=== PATIENT | male | born 1945 | race Two or more races ===

== ENCOUNTER → 2017-02-25 | Outpatient (CLI) | payer MEDICARE, OTHER ==
[2017-02-27 12:41] LABS: PSA FREE 0.36 ng/mL
== END ==
LOC: OD 08:48
PROVIDERS: ATTEND Urology
DX: N41.1 Chronic prostatitis (principal); N40.1 Benign prostatic hyperplasia with lower urinary tract symptoms; I51.9 Heart disease, unspecified; E13.9 Other specified diabetes mellitus without complications; I10 Essential (primary) hypertension
CPT/HCPCS: 36415; 84154

== ENCOUNTER → 2017-09-02 | Outpatient (CLI) | payer MEDICARE, OTHER | LOC: OD 13:53 | PROVIDERS: ATTEND Urology | DX: N41.1 Chronic prostatitis (principal); N40.1 Benign prostatic hyperplasia with lower urinary tract symptoms; E13.9 Other specified diabetes mellitus without complications; I10 Essential (primary) hypertension | CPT/HCPCS: 36415; 84153 ==

== ENCOUNTER 2018-01-15 13:32 | Inpatient (IN) | payer MEDICARE, OTHER ==
[2018-01-15] MEDS ORDERED: ASPIRIN 81 MG TABLET, CHEWABLE PO ONE (13:41)
[2018-01-15] MEDS ORDERED: NORMAL SALINE 1000 ML 1,000 ML IV ONE (13:55)
--- NOTE | 2018-01-15 14:07 | RADIOLOGY REPORT (SQ) ---
EXAM DESCRIPTION: CHEST SINGLE VIEW COMPLETED DATE/TIME: 01/15/2018 1:52 pm REASON FOR STUDY: Shortness of breath COMPARISON: 11/10/2011 EXAM PARAMETERS: NUMBER OF VIEWS: One view. TECHNIQUE: Single frontal radiographic view of the chest acquired. RADIATION DOSE: NA LIMITATIONS: None. FINDINGS: LUNGS AND PLEURA: No opacities, masses or pneumothorax. No pleural effusion. MEDIASTINUM AND HILAR STRUCTURES: No masses. Contour normal. HEART AND VASCULAR STRUCTURES: Heart normal in size. Normal vasculature. BONES: No acute findings. HARDWARE: Left-sided pacemaker/ defibrillator. OTHER: Artifact from defibrillator pads and EKG leads over the chest IMPRESSION: NO ACUTE RADIOGRAPHIC FINDING IN THE CHEST. TECHNICAL DOCUMENTATION: JOB ID: [id number] [employer]- All Rights Reserved Reading location - IP/workstation name: [email or web address]
[2018-01-15 14:10] LABS: ABSOLUTE BASOPHILS # (AUTO) 0.1 10^3/uL (0.0-0.2); ABSOLUTE EOSINOPHILS # (AUTO) 0.2 10^3/uL (0.0-0.6); ABSOLUTE LYMPHOCYTES (AUTO) 2.4 10^3/uL (0.5-4.7); ABSOLUTE MONOCYTES (AUTO) 1.3 10^3/uL (0.1-1.4); ABSOLUTE NEUT (AUTO) 14.1 10^3/uL (1.7-8.2); BASOPHILS % (AUTO) 0.7 % (0-2); HEMATOCRIT 41.9 % (37.9-51.0); HEMOGLOBIN 13.9 g/dL (13.5-17.0); LYMPHOCYTES % (AUTO) 13.4 % (13-45); MEAN CORPUSCULAR HEMOGLOBIN 31.6 pg (27.0-33.4); MEAN CORPUSCULAR HGB CONC 33.2 g/dL (32.0-36.0); MEAN CORPUSCULAR VOLUME 95 fl (80-97); MONOCYTES % (AUTO) 7.1 % (3-13); PLATELET COUNT 309 10^3/uL (150-450); RED CELL DISTRIBUTION WIDTH 13.1 % (11.5-14.0); SEGMENTED NEUTROPHILS % (AUTO) 77.8 % (42-78); TOTAL CELLS COUNTED % (AUTO) 100 %; WHITE BLOOD COUNT 18.1 10^3/uL (4.0-10.5)
--- NOTE | 2018-01-15 14:16 | EKG REPORT ---
SEVERITY:- ABNORMAL ECG - ATRIAL-VENTRICULAR DUAL-PACED COMPLEXES LEFT BUNDLE BRANCH BLOCK : Confirmed by: Red Marshall MD 15-Jan-2018 14:15:02
[2018-01-15 14:28] LABS: ALANINE AMINOTRANSFERASE 24 U/L (21-72); ALBUMIN 4.2 g/dL (3.5-5.0); ALKALINE PHOSPHATASE 91 U/L (38-126); ANION GAP 14 (5-19); ASPARTATE AMINO TRANSFERASE 18 U/L (17-59); BILIRUBIN,DIRECT 0.2 mg/dL (0.0-0.4); BILIRUBIN,TOTAL 0.8 mg/dL (0.2-1.3); BLOOD UREA NITROGEN 17 mg/dL (7-20); CARBON DIOXIDE 24 mmol/L (22-30); CHLORIDE 100 mmol/L (98-107); CREATINE KINASE 35 U/L (55-170); GLUCOSE 292 mg/dL (75-110); POTASSIUM 4.8 mmol/L (3.6-5.0); SODIUM 138.2 mmol/L (137-145)
[2018-01-15 14:40] LABS: CREATINE KINASE MB 0.54 ng/mL (<4.55); TROPONIN I < 0.012 ng/mL
--- NOTE | 2018-01-15 16:47 | ER Document Report ---
ED Cardiac - General Chief Complaint: Irregular Pulse Stated Complaint: LOW HEART RATE Time Seen by Provider: 01/15/18 13:41 Mode of Arrival: Stretcher Information source: Patient, Emergency Med Personnel Notes: History of complain-72 years old male who had a pacemaker placed last week, presents today because of low heart rate midsternal chest pain and low blood pressure. He called EMS EMS found his heart rate around 40. By the time he was brought in it was 70 without any intervention. He denied any dizziness lightheadedness. Denies any left arm numbness tingling sensation denies any nausea vomiting. REVIEW OF SYSTEMS: CONSTITUTIONAL : Denies fever, chills, or sweats. Denies recent illness. EENT: Denies eye, ear, throat, or mouth pain or symptoms. Denies nasal or sinus congestion or discharge. Denies throat, tongue, or mouth swelling or difficulty swallowing. CARDIOVASCULAR: Denies chest pain. Denies palpitations or racing or irregular heart beat. Denies ankle edema. RESPIRATORY: Denies cough, cold, or chest congestion. Denies shortness of breath, difficulty breathing, or wheezing. GASTROINTESTINAL: Denies abdominal pain or distention. Denies nausea, vomiting , or diarrhea. Denies blood in vomitus, stools, or per rectum. Denies black, tarry stools. Denies constipation. GENITOURINARY: Denies difficulty urinating, painful urination, burning, frequency, blood in urine, or discharge. MUSCULOSKELETAL: Denies back or neck pain or stiffness. Denies joint pain or swelling. SKIN: Denies rash, lesions or sores. HEMATOLOGIC : Denies easy bruising or bleeding. LYMPHATIC: Denies swollen, enlarged glands. NEUROLOGICAL: Denies confusion or altered mental status. Denies passing out or loss of consciousness. Denies dizziness or lightheadedness. Denies headache. Denies weakness or paralysis or loss of use of either side. Denies problems with gait or speech. Denies sensory loss, numbness, or tingling. Denies seizures. PSYCHIATRIC: Denies anxiety or stress. Denies depression, suicidal ideation, or homicidal ideation. ALL OTHER SYSTEMS REVIEWED AND NEGATIVE. Dictation was performed using [employer] voice recognition software PHYSICAL EXAMINATION: GENERAL: Well-appearing, well-nourished and in no acute distress. HEAD: Atraumatic, normocephalic. EYES: Pupils equal round and reactive to light, extraocular movements intact, sclera anicteric, conjunctiva are normal. ENT: Nares patent, oropharynx clear without exudates. Moist mucous membranes. NECK: Normal range of motion, supple without lymphadenopathy LUNGS: Breath sounds clear to auscultation bilaterally and equal. No wheezes rales or rhonchi. HEART: Regular rate and rhythm without murmurs ABDOMEN: Soft, nontender, nondistended abdomen. No guarding, no rebound. No masses appreciated. Musculoskeletal: Normal range of motion, no pitting or edema. No cyanosis. NEUROLOGICAL: Cranial nerves grossly intact. Normal speech, normal gait. Normal sensory, motor exams PSYCH: Normal mood, normal affect. SKIN: Warm, Dry, normal turgor, no rashes or lesions noted. TRAVEL OUTSIDE OF THE [place] IN LAST 30 DAYS: No - HPI Patient complains to provider of: Chest pain. denies: Chest tightness, Palpitations, Shortness of breath, Other - Related Data Allergies/Adverse Reactions: No Known Allergies Allergy (Verified 01/15/18 13:57) Past Medical History - Social History Smoking Status: Never Smoker Chew tobacco use (# tins/day): No Frequency of alcohol use: None Drug Abuse: None Family History: Reviewed & Not Pertinent Patient has suicidal ideation: No Patient has homicidal ideation: No - Past Medical History Cardiac Medical History: Reports: Hx Atrial Fibrillation, Hx Hypertension Pulmonary Medical History: Reports: Hx Asthma Endocrine Medical History: Reports: Hx Diabetes Mellitus Type 2 Renal/ Medical History: Denies: Hx Peritoneal Dialysis Past Surgical History: Reports: Hx Cardiac Catheterization - stents Review of Systems - Review of Systems Constitutional: denies: No symptoms reported, See HPI, Chills, Diaphoresis, Fever, Malaise, Weakness, Other, Weight gain, Weight loss, Recent illness EENT: denies: No symptoms reported, See HPI, Eye pain, Eye discharge, Blurred vision, Tearing, Double vision, Ear pain, Ear discharge, Nose pain, Nose congestion, Nose discharge, Sinus pressure, Sinus discharge, Throat pain, Difficulty swallowing, Throat swelling, Mouth pain, Mouth swelling, Dental problem, Vertigo, Other Cardiovascular: See HPI Respiratory: denies: No symptoms reported, See HPI, Cough, Hurts to breathe, Hemoptysis, Short of breath, Sputum, Stridor, Wheezing, Other Gastrointestinal: denies: No symptoms reported, See HPI, Abdomen distended, Abdominal pain, Diarrhea, Nausea, Vomiting, Constipation, Blood streaked bowels , Poor appetite, Poor fluid intake, Blood in vomit, Black stools, Rectal bleeding, Last bowel movement, Fecal incontinence, Other Genitourinary: denies: No symptoms reported, See HPI, Burning, Dysuria, Discharge, Frequency, Flank pain, Hematuria, Incontinence, Pain, Urgency, Retention, Other Skin: denies: No symptoms reported, See HPI, Change in color, Change in hair/ nails, Dryness, Lesions, Lumps, Rash, Other Physical Exam - Vital signs Vitals: Resp Pulse Ox 10 L 97 01/15/18 13:37 01/15/18 13:37 - Notes Notes: Dictated Course - Vital Signs Vital signs: Temp Pulse Resp BP Pulse Ox 98 F 63 23 H 91/65 L 96 01/15/18 13:40 01/15/18 13:40 01/15/18 15:51 01/15/18 16:10 01/15/18 16:10 - Laboratory Result Diagrams: 01/15/18 13:50 01/15/18 13:50 Laboratory results interpreted by me: 01/15/18 01/15/18 13:50 13:50 WBC 18.1 H Absolute Neutrophils 14.1 H Glucose 292 H Creatine Kinase 35 L - Diagnostic Test Radiology reviewed: Reports reviewed - Chest x-ray reported by radiologist as normal - EKG Interpretation by Me EKG shows normal: Sinus rhythm Rate: Normal - Sinus rhythm at the rate of 86 bpm normal axis no acute changes noted. Discharge - Discharge Clinical Impression: Chest pain, rule out acute myocardial infarction, Hypotensive episode Condition: Fair Disposition: ADMITTED INPATIENT Admitting Provider: Hospitalist Unit Admitted: Telemetry
[2018-01-15] MEDS ORDERED: ONDANSETRON HCL INJ/PF 4 MG/2 ML SDV IV PRN (18:00)
[2018-01-15] MEDS ORDERED: DEXTROSE 5%-WATER 250 ML with NOREPINEPHRINE BITARTRATE 4 MG IV PRN ×2 (18:00)
[2018-01-15] MEDS ORDERED: ACETAMINOPHEN 325 MG TABLET PO PRN (18:00)
[2018-01-15] MEDS ORDERED: GUAIFENESIN SYRP 200 MG/10 ML UDC PO PRN (18:11)
[2018-01-15] MEDS ORDERED: VANCOMYCIN HCL 0 MG in DEXTROSE 5%-WATER 250 ML IV NR (18:15)
--- NOTE | 2018-01-15 18:31 | PDOC H&P ---
History of Present Illness Admission Date/PCP: 01/15/2018 Patient complains of: This patient presents emergency room with complaints of acute onset of midsternal chest pain especially when taking a deep breath. He also complained of a fever. Patient actually said he was fine until this morning History of Present Illness: REUBEN LÓPEZ is a 72 year old male who presents emergency room with complaints of acute onset of midsternal chest pain especially when taking a deep breath. He also complained of a fever. Patient actually said he was fine until this morning. He got up and prepared to shave and took a bath and this was when the symptoms started. Patient does live alone as there is a recent . EMS apparently found him to be initially bradycardic however this is somewhat questionable as this was not documented anywhere. He did recently have a pacemaker inserted at [place] on January 04. Recent discharge from the incision site and there is no swelling or pain to her usual from the site. He was found to be hypotensive in the emergency room and although he felt febrile his temperature was within normal. Continues to complain of pleuritic chest pain and he does have a slight cough. His white count was also found to be elevated at 18,000 with a left shift. There is no dysuria frequency or altered mental status Past Medical History Cardiac Medical History: Reports: Atrial Fibrillation, Hypertension Pulmonary Medical History: Reports: Asthma Endocrine Medical History: Reports: Diabetes Mellitus Type 2 Past Surgical History Past Surgical History: Reports: Cardiac Catheterization - stents, Pacemaker - Social History Information Source: Patient Lives with: Alone Smoking Status: Never Smoker Frequency of Alcohol Use: None Hx Recreational Drug Use: No Hx Prescription Drug Abuse: No - Advance Directive Resuscitation Status: Full Code Family History Family History: None, Reviewed & Not Pertinent Parental Family History Reviewed: Yes Children Family History Reviewed: Yes Sibling(s) Family History Reviewed.: Yes Medication/Allergy Home Medications: Amitriptyline HCl 10 mg PO QHS 01/15/18 Atorvastatin Calcium 10 mg PO QHS 01/15/18 Carvedilol [Coreg 3.125 mg Tablet] 3.125 mg PO Q12 01/15/18 Etodolac 400 mg PO BID 01/15/18 Glipizide [Glipizide ER] 5 mg PO DAILY 01/15/18 Lubiprostone [Amitiza 24 Mcg Capsule] 24 mcg PO BID 01/15/18 Lubiprostone [Amitiza 24 Mcg Capsule] 24 mcg PO DAILY 01/15/18 Metformin HCl [Metformin HCl ER] 500 mg PO DAILY 01/15/18 Oxycodone HCl 5 mg PO Q4H PRN 01/15/18 Sacubitril/Valsartan [Entresto 24 mg-26 mg Tablet] 1 each PO BID 01/15/18 Sertraline HCl 25 mg PO DAILY 01/15/18 Silodosin [Rapaflo] 8 mg PO QHS 01/15/18 Sitagliptin Phos/Metformin HCl [Janumet Xr 100-1,000 mg Tablet] 1 each PO DAILY 01/15/18 Allergies/Adverse Reactions: No Known Allergies Allergy (Verified 01/15/18 13:57) Review of Systems Constitutional: PRESENT: chills, fatigue, fever(s), weakness. ABSENT: headache( s), weight gain, weight loss Eyes: ABSENT: visual disturbances Nose, Mouth, and Throat: PRESENT: headache(s). ABSENT: sore throat Cardiovascular: PRESENT: chest pain Respiratory: PRESENT: cough Gastrointestinal: ABSENT: abdominal pain, constipation, diarrhea, hematemesis, hematochezia, nausea, vomiting Genitourinary: ABSENT: dysuria, hematuria Musculoskeletal: ABSENT: joint swelling Neurological: ABSENT: abnormal gait, abnormal speech, confusion, dizziness, focal weakness, syncope Physical Exam Vital Signs: Temp Pulse Resp BP Pulse Ox 98 F 63 25 H 92/71 L 95 01/15/18 13:40 01/15/18 13:40 01/15/18 17:01 01/15/18 17:01 01/15/18 17:00 Intake & Output 01/14/18 01/15/18 01/16/18 06:59 06:59 06:59 Weight 68.039 kg General appearance: PRESENT: no acute distress, well-developed Head exam: PRESENT: atraumatic Ear exam: PRESENT: normal external ear exam Mouth exam: PRESENT: dry mucosa Neck exam: ABSENT: carotid bruit, JVD, lymphadenopathy, thyromegaly Respiratory exam: PRESENT: clear to auscultation marcel, decreased breath sounds, unlabored. ABSENT: rales, rhonchi, wheezes Cardiovascular exam: PRESENT: RRR. ABSENT: diastolic murmur, rubs, systolic murmur Pulses: PRESENT: normal dorsalis pedis pul GI/Abdominal exam: PRESENT: normal bowel sounds, soft. ABSENT: distended, guarding, mass, organolmegaly, rebound, tenderness Rectal exam: PRESENT: deferred Extremities exam: PRESENT: full ROM. ABSENT: calf tenderness, clubbing, pedal edema Musculoskeletal exam: PRESENT: ambulatory Neurological exam: PRESENT: alert, awake, oriented to person, oriented to place , oriented to time, oriented to situation, CN II-XII grossly intact. ABSENT: motor sensory deficit Psychiatric exam: PRESENT: appropriate affect Skin exam: PRESENT: other - Left chest wall incision site PPM intact, mild erythema but no discharges seen Results Laboratory Results: 01/15/18 13:50 01/15/18 13:50 01/15/18 01/15/18 13:50 13:50 WBC 18.1 H RBC 4.40 Hgb 13.9 Hct 41.9 MCV 95 MCH 31.6 MCHC 33.2 RDW 13.1 Plt Count 309 Seg Neutrophils % 77.8 Lymphocytes % 13.4 Monocytes % 7.1 Eosinophils % 1.0 Basophils % 0.7 Absolute Neutrophils 14.1 H Absolute Lymphocytes 2.4 Absolute Monocytes 1.3 Absolute Eosinophils 0.2 Absolute Basophils 0.1 Sodium 138.2 Potassium 4.8 Chloride 100 Carbon Dioxide 24 Anion Gap 14 BUN 17 Creatinine 0.95 Est GFR ( Amer) > 60 Est GFR (Non-Af Amer) > 60 Glucose 292 H Calcium 10.0 Total Bilirubin 0.8 AST 18 ALT 24 Alkaline Phosphatase 91 Total Protein 7.0 Albumin 4.2 01/15/18 01/15/18 13:50 13:50 Creatine Kinase 35 L CK-MB (CK-2) 0.54 Troponin I < 0.012 EKG Comments: Paced Rhythm, LBBB Impressions: Chest X-Ray 01/15/18 13:41 IMPRESSION: NO ACUTE RADIOGRAPHIC FINDING IN THE CHEST. Assessment & Plan - Diagnosis (1) Sepsis Is this a current diagnosis for this admission?: Yes Plan: It appears patient is likely septic given his hypotension as well as his leukocytosis and although his chest x-ray is negative I strongly suspect that he has pneumonia. I will start him on broad-spectrum antibiotics including vancomycin as he recently was in the hospital for his pacemaker placement. Will add cefepime. Blood cultures will be collected and if available for sputum cultures also. Will de-escalate antibiotics as appropriate. At this time I really do not see any evidence of a pocket infection or cellulitis will continue to monitor closely. (2) Pneumonia Is this a current diagnosis for this admission?: Yes Plan: Clinically appears to have rales in both bases. Chest x-ray is negative however patient is clearly dehydrated with loss of intravascular volume which may explain the clean chest x-ray. Will obtain urine for Legionella and strep and continue empiric antibiotics (3) CAD (coronary artery disease) Is this a current diagnosis for this admission?: Yes Plan: Judging from patient's home medicines it appears he has significant history of heart failure however patient is a poor historian and is unable to give me much information. He obviously did have a recent pacemaker defibrillator inserted which suggest severe cardiomyopathy. At this point this is not a an acute issue so we will monitor and treat as appropriate (4) Hypotensive episode Is this a current diagnosis for this admission?: Yes Plan: Secondary to intravascular volume depletion and sepsis - Time Time Spent: 50 to 70 Minutes Medications reviewed and adjusted accordingly: Yes Anticipated discharge: Home Within: within 72 hours - Inpatient Certification Based on my medical assessment, after consideration of the patient's comorbidities, presenting symptoms, or acuity I expect that the services needed warrant INPATIENT care.: Yes Medical Necessity: Need For IV Fluids, Need for IV Antibiotics, Risk of Complication if Not Cared For in Hospital
[2018-01-15] MEDS: CEFEPIME 1 GM/D5W RTU 1 GM/50 ML RTUPB IV SCH (18:38)
[2018-01-15] MEDS ORDERED: MORPHINE SULFATE 10 MG/ML INJ IV PRN (18:38)
[2018-01-15] MEDS: OXYCODONE-ACETAMINOPHEN 5-325 MG TABLET PO PRN (18:39)
[2018-01-15] MEDS: RINGERS SOLUTION,LACTATED 1,000 ML IV PRN ×2 (18:40→23:00)
[2018-01-15] MEDS ORDERED: GUAIFENESIN 600 MG TABLET.SA PO ONE (19:00)
[2018-01-15] MEDS ORDERED: VANCOMYCIN HCL INJ 1000 MG VIAL IV PRN (19:21)
[2018-01-15] MEDS ORDERED: VANCOMYCIN HCL 1,500 MG in DEXTROSE 5%-WATER 250 ML IV ONE (20:00)
[2018-01-15] MEDS: FAMOTIDINE 20 MG TABLET PO SCH (21:45)
[2018-01-15] MEDS: ATORVASTATIN CALCIUM 10 MG TABLET PO SCH (21:45)
[2018-01-15] MEDS ORDERED: (PENDING PHARMACY ID) (Silodosin [Rapaflo] 8 MG) PO SCH (22:00)
[2018-01-15] MEDS ORDERED: TEMAZEPAM 7.5 MG CAPSULE PO SCH (22:00)
[2018-01-16] MEDS: OXYCODONE-ACETAMINOPHEN 5-325 MG TABLET PO PRN (00:30)
[2018-01-16] MEDS ORDERED: AMITRIPTYLINE HCL 10 MG TABLET PO ONE (00:45)
[2018-01-16] MEDS ORDERED: DEXTROSE 40% GEL 15 GM TUBE X 2 PO PRN (01:14)
[2018-01-16] MEDS ORDERED: GLUCAGON,HUMAN RECOMB 1 MG INJ IM PRN (01:14)
[2018-01-16] MEDS ORDERED: DEXTROSE 40% GEL 15 GM TUBE PO PRN (01:14)
[2018-01-16] MEDS ORDERED: DEXTROSE 50%-WATER SYRINGE 25 GM/50 ML DOSE IV PRN (01:14)
[2018-01-16] MEDS ORDERED: DEXTROSE 50%-WATER SYRINGE 12.5 GM/25 ML DOSE IV PRN (01:14)
[2018-01-16] MEDS: INSULIN LISPRO 100 UNIT/ML 3 ML VIAL SUBCUT PRN ×5 (01:35→21:58)
[2018-01-16 05:21] LABS: ABSOLUTE LYMPHOCYTES (AUTO) 1.2 10^3/uL (0.5-4.7); ABSOLUTE MONOCYTES (AUTO) 1.5 10^3/uL (0.1-1.4); ABSOLUTE NEUT (AUTO) 13.2 10^3/uL (1.7-8.2); BASOPHILS % (AUTO) 0.2 % (0-2); HEMATOCRIT 36.8 % (37.9-51.0); HEMOGLOBIN 12.4 g/dL (13.5-17.0); LYMPHOCYTES % (AUTO) 7.4 % (13-45); MEAN CORPUSCULAR HEMOGLOBIN 31.9 pg (27.0-33.4); MEAN CORPUSCULAR HGB CONC 33.6 g/dL (32.0-36.0); MEAN CORPUSCULAR VOLUME 95 fl (80-97); MONOCYTES % (AUTO) 9.3 % (3-13); PLATELET COUNT 257 10^3/uL (150-450); RED BLOOD COUNT 3.88 10^6/uL (4.35-5.55); SEGMENTED NEUTROPHILS % (AUTO) 83.1 % (42-78); TOTAL CELLS COUNTED % (AUTO) 100 %; WHITE BLOOD COUNT 15.9 10^3/uL (4.0-10.5)
[2018-01-16 05:46] LABS: ANION GAP 9 (5-19); BLOOD UREA NITROGEN 23 mg/dL (7-20); CALCIUM 9.6 mg/dL (8.4-10.2); CARBON DIOXIDE 25 mmol/L (22-30); CHLORIDE 101 mmol/L (98-107); GLUCOSE 251 mg/dL (75-110); POTASSIUM 5.5 mmol/L (3.6-5.0); SODIUM 134.9 mmol/L (137-145)
[2018-01-16 05:56] LABS: TROPONIN I 0.046 ng/mL
[2018-01-16] MEDS ORDERED: CEFEPIME 1 GM/D5W RTU 1 GM/50 ML RTUPB IV ONE (06:07)
[2018-01-16] MEDS: CEFEPIME 1 GM/D5W RTU 1 GM/50 ML RTUPB IV SCH ×2 (06:20→17:52)
[2018-01-16] MEDS: OXYCODONE HCL IR 5 MG TABLET PO PRN (06:40)
[2018-01-16] MEDS: RINGERS SOLUTION,LACTATED 1,000 ML IV PRN ×2 (06:41→17:55)
[2018-01-16] MEDS: METFORMIN HCL 500 MG TABLET PO SCH ×2 (07:57→17:52)
[2018-01-16] MEDS: GLIPIZIDE XL 5 MG TAB.ER.24 PO SCH (07:57)
[2018-01-16] MEDS ORDERED: CARVEDILOL 3.125 MG TABLET PO SCH (10:00)
[2018-01-16] MEDS: SERTRALINE HCL 50 MG TABLET PO SCH (10:46)
[2018-01-16] MEDS: FAMOTIDINE 20 MG TABLET PO SCH ×2 (10:46→21:58)
[2018-01-16] MEDS: DOCUSATE SODIUM 100 MG CAPSULE PO SCH (10:46)
[2018-01-16] MEDS: CARVEDILOL 3.125 MG TABLET PO SCH ×2 (10:47→21:58)
[2018-01-16] MEDS: GUAIFENESIN 600 MG TABLET.SA PO SCH ×2 (10:48→21:57)
[2018-01-16] MEDS: ENOXAPARIN SODIUM INJ 40 MG/0.4 ML DISP.SYRIN SUBCUT SCH (10:49)
[2018-01-16] MEDS: ASPIRIN 81 MG TABLET, ENT COATED PO SCH (11:28)
[2018-01-16] MEDS: LUBIPROSTONE 24 MCG CAPSULE PO SCH ×2 (11:28→17:52)
[2018-01-16] MEDS: SACUBITRIL/VALSARTAN 24 MG/26 MG TABLET PO SCH ×2 (11:29→21:57)
[2018-01-16] MEDS ORDERED: VANCOMYCIN HCL 750 MG in DEXTROSE 5%-WATER 250 ML IV ONE (12:00)
--- NOTE | 2018-01-16 15:49 | PDOC PROGRESS REPORT ---
Subjective Progress Note for:: 01/16/18 Subjective:: Patient admitted with hypotension and likely sepsis. He is much better today. Much more talkative and his blood pressure appears improved yesterday evening so he was admitted to the [facility] instead of ICU. He says his pleuritic chest pain is better. There is no nausea vomiting and still has a slight cough Reason For Visit: SEPSIS, HYPOTENSION Physical Exam Vital Signs: Temp Pulse Resp BP Pulse Ox 97.3 F 84 16 97/58 L 94 01/16/18 11:14 01/16/18 14:00 01/16/18 11:14 01/16/18 11:14 01/16/18 11:14 Intake & Output 01/15/18 01/16/18 01/17/18 06:59 06:59 06:59 Intake Total 868 355 Output Total 150 Balance 718 355 Weight 68.5 kg General appearance: PRESENT: no acute distress Head exam: PRESENT: atraumatic Eye exam: PRESENT: conjunctiva pink, EOMI, PERRLA. ABSENT: scleral icterus Neck exam: ABSENT: carotid bruit, JVD, lymphadenopathy, thyromegaly Respiratory exam: PRESENT: crackles, rhonchi, unlabored, wheezes Cardiovascular exam: PRESENT: RRR. ABSENT: diastolic murmur, rubs, systolic murmur Pulses: PRESENT: normal dorsalis pedis pul GI/Abdominal exam: PRESENT: ascites, normal bowel sounds. ABSENT: guarding Rectal exam: PRESENT: deferred Neurological exam: PRESENT: alert, awake, oriented to person, oriented to place , oriented to time Skin exam: PRESENT: other - PPM site intact, no discharges seen Results Laboratory Results: 01/16/18 04:56 01/16/18 04:56 01/16/18 01/16/18 04:56 04:56 WBC 15.9 H RBC 3.88 L Hgb 12.4 L Hct 36.8 L MCV 95 MCH 31.9 MCHC 33.6 RDW 13.0 Plt Count 257 Seg Neutrophils % 83.1 H Lymphocytes % 7.4 L Monocytes % 9.3 Eosinophils % 0.0 Basophils % 0.2 Absolute Neutrophils 13.2 H Absolute Lymphocytes 1.2 Absolute Monocytes 1.5 H Absolute Eosinophils 0.0 Absolute Basophils 0.0 Sodium 134.9 L Potassium 5.5 H Chloride 101 Carbon Dioxide 25 Anion Gap 9 BUN 23 H Creatinine 0.99 Est GFR ( Amer) > 60 Est GFR (Non-Af Amer) > 60 Glucose 251 H Calcium 9.6 Magnesium 2.1 01/15/18 01/16/18 19:47 04:56 Troponin I 0.099 0.046 NT-Pro-B Natriuret Pep 321 Impressions: Chest X-Ray 01/15/18 13:41 IMPRESSION: NO ACUTE RADIOGRAPHIC FINDING IN THE CHEST. Assessment & Plan - Diagnosis (1) Sepsis Is this a current diagnosis for this admission?: Yes Plan: Cont current abx (2) Pneumonia Is this a current diagnosis for this admission?: Yes Plan: Likely etiology (3) CAD (coronary artery disease) Is this a current diagnosis for this admission?: Yes Plan: s/p stent placement 2008 (4) Hypotensive episode Is this a current diagnosis for this admission?: Yes Plan: likely from sepsis resolved (5) Status post placement of cardiac pacemaker Is this a current diagnosis for this admission?: Yes Plan: Recent 01/04, no signs of infection - Time Time Spent with patient: 15-24 minutes Medications reviewed and adjusted accordingly: Yes Anticipated discharge: Home Within: within 72 hours - Inpatient Certification Based on my medical assessment, after consideration of the patient's comorbidities, presenting symptoms, or acuity I expect that the services needed warrant INPATIENT care.: Yes Medical Necessity: Need For IV Fluids, Need for IV Antibiotics
[2018-01-16 19:05] LABS: APPEARANCE,URINE CLEAR; BILIRUBIN,URINE SMALL (NEGATIVE); COLOR,URINE YELLOW; GLUCOSE, URINE 50 mg/dL (NEGATIVE); KETONES,URINE NEGATIVE (NEGATIVE); LEUKOCYTE ESTERASE,URINE NEGATIVE (NEGATIVE); NITRITE,URINE NEGATIVE (NEGATIVE); PROTEIN,URINE NEGATIVE (NEGATIVE); URINE SPECIFIC GRAVITY 1.026; UROBILINOGEN,URINE NEGATIVE mg/dL (<2.0)
[2018-01-16] MEDS: VANCOMYCIN HCL 750 MG in DEXTROSE 5%-WATER 250 ML IV SCH (21:58)
[2018-01-16] MEDS: ATORVASTATIN CALCIUM 10 MG TABLET PO SCH (21:58)
[2018-01-17 05:47] LABS: ABSOLUTE BASOPHILS # (AUTO) 0.1 10^3/uL (0.0-0.2); ABSOLUTE EOSINOPHILS # (AUTO) 0.1 10^3/uL (0.0-0.6); ABSOLUTE LYMPHOCYTES (AUTO) 1.9 10^3/uL (0.5-4.7); ABSOLUTE MONOCYTES (AUTO) 1.7 10^3/uL (0.1-1.4); ABSOLUTE NEUT (AUTO) 7.1 10^3/uL (1.7-8.2); BASOPHILS % (AUTO) 0.8 % (0-2); HEMATOCRIT 33.1 % (37.9-51.0); HEMOGLOBIN 11.3 g/dL (13.5-17.0); LYMPHOCYTES % (AUTO) 17.4 % (13-45); MEAN CORPUSCULAR HEMOGLOBIN 32.6 pg (27.0-33.4); MEAN CORPUSCULAR HGB CONC 34.2 g/dL (32.0-36.0); MEAN CORPUSCULAR VOLUME 95 fl (80-97); MONOCYTES % (AUTO) 15.8 % (3-13); PLATELET COUNT 183 10^3/uL (150-450); RED BLOOD COUNT 3.48 10^6/uL (4.35-5.55); RED CELL DISTRIBUTION WIDTH 13.2 % (11.5-14.0); TOTAL CELLS COUNTED % (AUTO) 100 %
[2018-01-17] MEDS: CEFEPIME 1 GM/D5W RTU 1 GM/50 ML RTUPB IV SCH ×2 (05:53→18:05)
[2018-01-17 06:14] LABS: ANION GAP 9 (5-19); BLOOD UREA NITROGEN 24 mg/dL (7-20); CALCIUM 9.3 mg/dL (8.4-10.2); CARBON DIOXIDE 25 mmol/L (22-30); CHLORIDE 102 mmol/L (98-107); GLUCOSE 146 mg/dL (75-110); SODIUM 135.8 mmol/L (137-145)
[2018-01-17] MEDS: METFORMIN HCL 500 MG TABLET PO SCH ×2 (08:28→18:05)
[2018-01-17] MEDS: INSULIN LISPRO 100 UNIT/ML 3 ML VIAL SUBCUT PRN (08:28)
[2018-01-17] MEDS: GLIPIZIDE XL 5 MG TAB.ER.24 PO SCH (08:28)
[2018-01-17] MEDS: ENOXAPARIN SODIUM INJ 40 MG/0.4 ML DISP.SYRIN SUBCUT SCH (10:37)
[2018-01-17] MEDS: GUAIFENESIN 600 MG TABLET.SA PO SCH ×2 (10:38→21:07)
[2018-01-17] MEDS: FAMOTIDINE 20 MG TABLET PO SCH ×2 (10:38→21:08)
[2018-01-17] MEDS: SERTRALINE HCL 50 MG TABLET PO SCH (10:39)
[2018-01-17] MEDS: CARVEDILOL 3.125 MG TABLET PO SCH ×2 (10:39→21:08)
[2018-01-17] MEDS: DOCUSATE SODIUM 100 MG CAPSULE PO SCH (10:40)
[2018-01-17] MEDS: ASPIRIN 81 MG TABLET, ENT COATED PO SCH (10:40)
[2018-01-17] MEDS: LUBIPROSTONE 24 MCG CAPSULE PO SCH ×2 (10:41→18:05)
[2018-01-17] MEDS: SACUBITRIL/VALSARTAN 24 MG/26 MG TABLET PO SCH ×2 (10:41→21:09)
[2018-01-17] MEDS: VANCOMYCIN HCL 750 MG in DEXTROSE 5%-WATER 250 ML IV SCH ×2 (10:41→22:29)
[2018-01-17] MEDS: RINGERS SOLUTION,LACTATED 1,000 ML IV PRN (10:44)
--- NOTE | 2018-01-17 13:39 | PDOC PROGRESS REPORT ---
Subjective Progress Note for:: 01/17/18 Subjective:: Patient admitted with hypotension and likely sepsis. He says his pleuritic chest pain is better. There is no nausea vomiting and still has a slight cough Reason For Visit: SEPSIS, HYPOTENSION Physical Exam Vital Signs: Temp Pulse Resp BP Pulse Ox 97.9 F 71 16 115/79 95 01/17/18 08:15 01/17/18 08:15 01/17/18 08:15 01/17/18 08:15 01/17/18 08:15 Intake & Output 01/16/18 01/17/18 01/18/18 06:59 06:59 06:59 Intake Total 868 2810 Output Total 150 950 Balance 718 1860 Weight 68.5 kg 72.1 kg General appearance: PRESENT: no acute distress, well-developed, well-nourished Head exam: PRESENT: atraumatic, normocephalic Eye exam: PRESENT: conjunctiva pink, EOMI, PERRLA. ABSENT: scleral icterus Ear exam: PRESENT: normal external ear exam Mouth exam: PRESENT: moist, tongue midline Neck exam: ABSENT: carotid bruit, JVD, lymphadenopathy, thyromegaly Respiratory exam: PRESENT: crackles, rales - RLL. ABSENT: rhonchi, wheezes Cardiovascular exam: PRESENT: RRR. ABSENT: diastolic murmur, rubs, systolic murmur Pulses: PRESENT: normal dorsalis pedis pul Vascular exam: PRESENT: normal capillary refill GI/Abdominal exam: PRESENT: normal bowel sounds, soft. ABSENT: distended, guarding, mass, organolmegaly, rebound, tenderness Rectal exam: PRESENT: deferred Extremities exam: PRESENT: full ROM. ABSENT: calf tenderness, clubbing, pedal edema Neurological exam: PRESENT: alert, awake, oriented to person, oriented to place , oriented to time, oriented to situation, CN II-XII grossly intact. ABSENT: motor sensory deficit Psychiatric exam: PRESENT: appropriate affect - somewhat withdrawn. ABSENT: homicidal ideation, suicidal ideation Skin exam: PRESENT: dry, intact, warm. ABSENT: cyanosis, rash Results Laboratory Results: 01/17/18 05:16 01/17/18 05:16 01/16/18 01/17/18 01/17/18 18:50 05:16 05:16 WBC 11.0 H RBC 3.48 L Hgb 11.3 L Hct 33.1 L MCV 95 MCH 32.6 MCHC 34.2 RDW 13.2 Plt Count 183 Seg Neutrophils % 65.0 Lymphocytes % 17.4 Monocytes % 15.8 H Eosinophils % 1.0 Basophils % 0.8 Absolute Neutrophils 7.1 Absolute Lymphocytes 1.9 Absolute Monocytes 1.7 H Absolute Eosinophils 0.1 Absolute Basophils 0.1 Sodium 135.8 L Potassium 5.0 Chloride 102 Carbon Dioxide 25 Anion Gap 9 BUN 24 H Creatinine 0.99 Est GFR ( Amer) > 60 Est GFR (Non-Af Amer) > 60 Glucose 146 H Calcium 9.3 Urine Color YELLOW Urine Appearance CLEAR Urine pH 5.0 Ur Specific [place] 1.026 Urine Protein NEGATIVE Urine Glucose (UA) 50 H Urine Ketones NEGATIVE Urine Blood NEGATIVE Urine Nitrite NEGATIVE Ur Leukocyte Esterase NEGATIVE Urine WBC (Auto) 2 Urine RBC (Auto) 1 01/15/18 01/16/18 19:47 04:56 Troponin I 0.099 0.046 NT-Pro-B Natriuret Pep 321 Impressions: Chest X-Ray 01/15/18 13:41 IMPRESSION: NO ACUTE RADIOGRAPHIC FINDING IN THE CHEST. Assessment & Plan - Diagnosis (1) Sepsis Is this a current diagnosis for this admission?: Yes Plan: Although chest x-ray was negative I believe patient has pneumonia. Will DC vancomycin after today's dose and continue with cefepime. (2) Pneumonia Is this a current diagnosis for this admission?: Yes Plan: Likely etiology of sepsis although unspecified organism and so far tapia cultures have been negative. Clinically I believe patient likely has pneumonia. (3) CAD (coronary artery disease) Is this a current diagnosis for this admission?: Yes Plan: s/p stent placement 2008. This is stable with no evidence of acute coronary syndrome (4) Hypotensive episode Is this a current diagnosis for this admission?: Yes Plan: Secondary to sepsis resolved (5) Status post placement of cardiac pacemaker Is this a current diagnosis for this admission?: Yes Plan: Change pacemaker dressing. There is no apparent infection of the site. Patient will follow up with his manipulator operator at discharge - Time Time Spent with patient: 15-24 minutes Medications reviewed and adjusted accordingly: Yes Anticipated discharge: Home with Homehealth - Inpatient Certification Based on my medical assessment, after consideration of the patient's comorbidities, presenting symptoms, or acuity I expect that the services needed warrant INPATIENT care.: Yes Medical Necessity: Need for IV Antibiotics, Risk of Complication if Not Cared For in Hospital
[2018-01-17] MEDS: ATORVASTATIN CALCIUM 10 MG TABLET PO SCH (21:07)
[2018-01-17] MEDS: AMITRIPTYLINE HCL 10 MG TABLET PO SCH (21:09)
[2018-01-18] MEDS: RINGERS SOLUTION,LACTATED 1,000 ML IV PRN (05:09)
[2018-01-18] MEDS: CEFEPIME 1 GM/D5W RTU 1 GM/50 ML RTUPB IV SCH (05:09)
[2018-01-18] MEDS: GLIPIZIDE XL 5 MG TAB.ER.24 PO SCH (09:04)
[2018-01-18] MEDS: METFORMIN HCL 500 MG TABLET PO SCH (09:04)
[2018-01-18] MEDS: INSULIN LISPRO 100 UNIT/ML 3 ML VIAL SUBCUT PRN (09:04)
[2018-01-18] MEDS: ENOXAPARIN SODIUM INJ 40 MG/0.4 ML DISP.SYRIN SUBCUT SCH (09:05)
[2018-01-18] MEDS: FAMOTIDINE 20 MG TABLET PO SCH ×2 (09:05→21:37)
[2018-01-18] MEDS: SERTRALINE HCL 50 MG TABLET PO SCH (09:05)
[2018-01-18] MEDS: CARVEDILOL 3.125 MG TABLET PO SCH (09:06)
[2018-01-18] MEDS: DOCUSATE SODIUM 100 MG CAPSULE PO SCH (09:06)
[2018-01-18] MEDS: GUAIFENESIN 600 MG TABLET.SA PO SCH ×2 (09:06→21:37)
[2018-01-18] MEDS: ASPIRIN 81 MG TABLET, ENT COATED PO SCH (09:06)
[2018-01-18] MEDS: SACUBITRIL/VALSARTAN 24 MG/26 MG TABLET PO SCH (09:08)
[2018-01-18] MEDS: LUBIPROSTONE 24 MCG CAPSULE PO SCH ×2 (09:08→17:14)
[2018-01-18] MEDS ORDERED: SORBITOL 70% SOLUTION 30 ML UDC PO PRN (13:11)
--- NOTE | 2018-01-18 14:20 | PDOC PROGRESS REPORT ---
Subjective Progress Note for:: 01/18/18 Subjective:: Patient complains of being constipated. Otherwise his breathing is better Review of system All organ systems evaluated and negative except as in subjective All laboratories and significant diagnostics have been reviewed Reason For Visit: SEPSIS, HYPOTENSION Physical Exam Vital Signs: Temp Pulse Resp BP Pulse Ox 98.1 F 61 18 115/52 L 96 01/18/18 11:49 01/18/18 11:49 01/18/18 11:49 01/18/18 11:49 01/18/18 11:49 Intake & Output 01/17/18 01/18/18 01/19/18 06:59 06:59 06:59 Intake Total 2810 3086 Output Total 950 3825 Balance 1860 -739 Weight 72.1 kg 75 kg General appearance: PRESENT: cooperative, well-developed, well-nourished Head exam: PRESENT: atraumatic, normocephalic Eye exam: PRESENT: conjunctiva pink, EOMI, PERRLA Ear exam: PRESENT: normal external ear exam Mouth exam: PRESENT: moist Neck exam: PRESENT: full ROM. ABSENT: JVD, lymphadenopathy, tenderness Respiratory exam: PRESENT: clear to auscultation marcel Cardiovascular exam: PRESENT: RRR. ABSENT: diastolic murmur, systolic murmur Vascular exam: PRESENT: normal capillary refill GI/Abdominal exam: PRESENT: normal bowel sounds, soft. ABSENT: tenderness Extremities exam: PRESENT: full ROM. ABSENT: pedal edema Musculoskeletal exam: PRESENT: ambulatory Neurological exam: PRESENT: alert, awake, oriented to person, oriented to place , oriented to time, oriented to situation, CN II-XII grossly intact Psychiatric exam: PRESENT: appropriate affect, normal mood Skin exam: PRESENT: normal color Results Laboratory Results: 01/17/18 05:16 01/17/18 21:45 01/17/18 21:45 Creatinine 0.90 Est GFR ( Amer) > 60 Est GFR (Non-Af Amer) > 60 01/16/18 18:50 Clean Catch Midstream Urine Culture - Final 3,000 col/ml 01/15/18 01/16/18 19:47 04:56 Troponin I 0.099 0.046 NT-Pro-B Natriuret Pep 321 Impressions: Chest X-Ray 01/15/18 13:41 IMPRESSION: NO ACUTE RADIOGRAPHIC FINDING IN THE CHEST. Assessment & Plan - Diagnosis (1) Pneumonia Qualifiers: Pneumonia type: due to unspecified organism Lung location: unspecified part of lung Is this a current diagnosis for this admission?: Yes Plan: Will order a CT of the chest since her admission chest x-ray was clear. According to the record as a consideration was that patient was dehydrated accounting for lack of chest x-ray evidence of infiltrate. Discontinue cefepime and placed on Levaquin. (2) Sepsis Qualifiers: Sepsis type: sepsis due to unspecified organism Qualified Code(s): A41.9 - Sepsis, unspecified organism Is this a current diagnosis for this admission?: Yes Plan: Resolved (3) CAD (coronary artery disease) Qualifiers: [place] vs. transplanted heart: unspecified whether [place] or transplanted heart Associated angina: without angina Is this a current diagnosis for this admission?: Yes Plan: Stable from the standpoint of view (4) Hypotensive episode Is this a current diagnosis for this admission?: Yes Plan: According to the record appears that patient was dehydrated upon presentation however there was some concern about sepsis (5) Status post placement of cardiac pacemaker Is this a current diagnosis for this admission?: Yes Plan: Stable (6) Constipation Qualifiers: Constipation type: unspecified constipation type Qualified Code(s): K59.00 - Constipation, unspecified Is this a current diagnosis for this admission?: Yes Plan: To place on bowel regimen - Time Time Spent with patient: 15-24 minutes Medications reviewed and adjusted accordingly: Yes Anticipated discharge: Home with Homehealth Within: within 48 hours - Inpatient Certification Based on my medical assessment, after consideration of the patient's comorbidities, presenting symptoms, or acuity I expect that the services needed warrant INPATIENT care.: Yes I certify that my determination is in accordance with my understanding of Medicare's requirements for reasonable and necessary INPATIENT services [42 CFR 412.3e].: Yes Medical Necessity: Need Close Monitoring Due to Risk of Patient Decompensation, Need For Continuous Telemetry Monitoring
--- NOTE | 2018-01-18 15:29 | RADIOLOGY REPORT (SQ) ---
EXAM DESCRIPTION: CT CHEST WITH COMPLETED DATE/TIME: 01/18/2018 3:01 pm REASON FOR STUDY: pleuritic chest pain/? pneumonia COMPARISON: Chest x-ray 01/15/2018 TECHNIQUE: CT scan of the chest performed using helical scanning technique with dynamic intravenous contrast injection. Images reviewed with lung, soft tissue and bone windows. Reconstructed coronal and sagittal MPR images reviewed. All images stored on PACS. All CT scanners at this facility use dose modulation, iterative reconstruction, and/or weight based d osing when appropriate to reduce radiation dose to as low as reasonably achievable (ALARA). [facility]: Dose Right [facility]: CareDose [facility]: Dose Right [facility]: Teradose 4D [facility]: Code Blue CONTRAST TYPE AND DOSE: contrast/concentration: Isovue 370.00 mg/ml; Total Contrast Delivered: 80.0 ml; Total Saline Delivered: 55.0 ml RENAL FUNCTION: BUN 24 creatinine 0.9 RADIATION DOSE: CT Rad equipment meets quality standard of care and radiation dose reduction techniq ues were employed. CTDIvol: 10.2 mGy. DLP: 367 mGy-cm. . LIMITATIONS: None. FINDINGS: LUNGS AND PLEURA: There is a moderate right pleural effusion and a smaller left pleural ef fusion. Associated compressive atelectasis in the lower lobes no focal infiltrate is present. No ma ss is seen. HILAR AND MEDIASTINAL STRUCTURES: No identified masses or abnormal nodes. HEART AND VASCULAR STRUCTURES: No aneurysm or dissection. No pericardial effusion. There is the tigre earance of some pericardial thickening, however. Pericardium anteriorly on image 41 measures 7.7 mm. This shows a density of 40 Hounsfield units. HARDWARE: Pacemaker. UPPER ABDOMEN: No significant findings. Limited exam. THYROID AND OTHER SOFT TISSUES: No masses. No adenopathy. BONES: No significant finding. OTHER: No other significant finding. IMPRESSION: 1. Moderate right pleural effusion and smaller left pleural effusion. 2. There appears to be pericardial thickening. Is there any history of or evidence of pericarditis? 3. No pulmonary infiltrate is appreciated. TECHNICAL DOCUMENTATION: JOB ID: [id number] Quality ID # [id number]: Final reports with documentation of one or more dose reduction techniques (e.g., Au tomated exposure control, adjustment of the mA and/or kV according to patient size, use of iterative reconstruction technique) 2010 [employer]- All Rights Reserved Reading location - IP/workstation name: [email or web address]
[2018-01-18] MEDS: LEVOFLOXACIN 750 MG TABLET PO SCH (17:14)
[2018-01-18] MEDS: LACTULOSE SYRUP 20 GM/30 ML UDCUP PO SCH (17:14)
[2018-01-18] MEDS: POLYETHYLENE GLYCOL 3350 POWDER 17 GM/1 PACKET PO SCH (17:15)
[2018-01-18] MEDS: ATORVASTATIN CALCIUM 10 MG TABLET PO SCH (21:38)
[2018-01-18] MEDS: AMITRIPTYLINE HCL 10 MG TABLET PO SCH (21:40)
[2018-01-19] MEDS: FAMOTIDINE 20 MG TABLET PO SCH ×2 (10:28→21:17)
[2018-01-19] MEDS: ENOXAPARIN SODIUM INJ 40 MG/0.4 ML DISP.SYRIN SUBCUT SCH (10:28)
[2018-01-19] MEDS: ASPIRIN 81 MG TABLET, ENT COATED PO SCH (10:28)
[2018-01-19] MEDS: LACTULOSE SYRUP 20 GM/30 ML UDCUP PO SCH ×2 (10:28→17:42)
[2018-01-19] MEDS: GUAIFENESIN 600 MG TABLET.SA PO SCH ×2 (10:28→21:19)
[2018-01-19] MEDS: CARVEDILOL 3.125 MG TABLET PO SCH ×3 (10:28→21:18)
[2018-01-19] MEDS: POLYETHYLENE GLYCOL 3350 POWDER 17 GM/1 PACKET PO SCH ×2 (10:29→17:41)
[2018-01-19] MEDS: LUBIPROSTONE 24 MCG CAPSULE PO SCH ×2 (10:36→17:42)
[2018-01-19] MEDS: SACUBITRIL/VALSARTAN 24 MG/26 MG TABLET PO SCH ×3 (10:36→21:18)
[2018-01-19] MEDS: ESCITALOPRAM OXALATE 10 MG TABLET PO SCH (10:44)
--- NOTE | 2018-01-19 11:34 | PDOC PROGRESS REPORT ---
Subjective Progress Note for:: 01/19/18 Subjective:: Patient refers that his breathing is better. Discussed with patient results of CT of the chest. Made aware that will order a thoracentesis to remove fluid from the right side of his known and also to order an echocardiogram. Review of system All organ systems evaluated and negative except as in subjective All laboratories and significant diagnostics have been reviewed Reason For Visit: SEPSIS, HYPOTENSION Physical Exam Vital Signs: Temp Pulse Resp BP Pulse Ox 98.5 F 75 16 138/67 H 95 01/19/18 07:40 01/19/18 07:40 01/19/18 07:40 01/19/18 07:40 01/19/18 07:40 Intake & Output 01/18/18 01/19/18 01/20/18 06:59 06:59 06:59 Intake Total 3086 1887 Output Total 3825 1625 Balance -739 262 Weight 75 kg 73.3 kg Results Laboratory Results: 01/17/18 05:16 01/17/18 21:45 01/16/18 18:50 Clean Catch Midstream Urine Culture - Final 3,000 col/ml 01/15/18 01/16/18 19:47 04:56 Troponin I 0.099 0.046 NT-Pro-B Natriuret Pep 321 Impressions: Chest X-Ray 01/15/18 13:41 IMPRESSION: NO ACUTE RADIOGRAPHIC FINDING IN THE CHEST. Chest CT 01/18/18 00:00 IMPRESSION: 1. Moderate right pleural effusion and smaller left pleural effusion. 2. There appears to be pericardial thickening. Is there any history of or evidence of pericarditis? 3. No pulmonary infiltrate is appreciated. Assessment & Plan - Diagnosis (1) Pneumonia Qualifiers: Pneumonia type: due to unspecified organism Lung location: unspecified part of lung Is this a current diagnosis for this admission?: Yes Plan: CT of the chest demonstrating bilateral pleural effusions. The right greater than the left. There could be a possibility that it may relate to fluid buildup since patient suffers from systolic congestive heart failure. However will continue with Levaquin for now (2) Sepsis Qualifiers: Sepsis type: sepsis due to unspecified organism Qualified Code(s): A41.9 - Sepsis, unspecified organism Is this a current diagnosis for this admission?: Yes Plan: Resolved (3) CAD (coronary artery disease) Qualifiers: [place] vs. transplanted heart: unspecified whether [place] or transplanted heart Associated angina: without angina Is this a current diagnosis for this admission?: Yes Plan: Stable (4) Hypotensive episode Is this a current diagnosis for this admission?: Yes Plan: According to the record appears that patient was dehydrated upon presentation however there was some concern about sepsis (5) Status post placement of cardiac pacemaker Is this a current diagnosis for this admission?: Yes Plan: Stable (6) Constipation Qualifiers: Constipation type: unspecified constipation type Qualified Code(s): K59.00 - Constipation, unspecified Is this a current diagnosis for this admission?: Yes Plan: Continue bowel regimen (7) Pericarditis Qualifiers: Infectious pericarditis etiology: unspecified Chronic pericarditis complication: unspecified complication status Is this a current diagnosis for this admission?: Yes Plan: Echocardiogram ordered. Sed rate ordered. To start empirically colchicine (8) Pleural effusion Is this a current diagnosis for this admission?: Yes Plan: Order thoracentesis - Time Time Spent with patient: 15-24 minutes Medications reviewed and adjusted accordingly: Yes Anticipated discharge: Home with Homehealth Within: within 72 hours - Inpatient Certification Based on my medical assessment, after consideration of the patient's comorbidities, presenting symptoms, or acuity I expect that the services needed warrant INPATIENT care.: Yes I certify that my determination is in accordance with my understanding of Medicare's requirements for reasonable and necessary INPATIENT services [42 CFR 412.3e].: Yes Medical Necessity: Need Close Monitoring Due to Risk of Patient Decompensation, Need For Continuous Telemetry Monitoring
[2018-01-19 11:49] LABS: INTERNATIONAL RATION (INR) 1.03; PARTIAL THROMBOPLASTIN TIME 32.4 SEC (23.5-35.8); PROTHROMBIN TIME 14.1 SEC (11.4-15.4)
[2018-01-19] MEDS ORDERED: FUROSEMIDE INJ/PF 20 MG/2 ML SDV IV ONE (13:00)
[2018-01-19] MEDS: INSULIN LISPRO 100 UNIT/ML 3 ML VIAL SUBCUT PRN ×2 (14:06→17:41)
[2018-01-19 14:39] LABS: TOTAL PROTEIN 6.5 g/dL (6.3-8.2)
[2018-01-19] MEDS: LEVOFLOXACIN 750 MG TABLET PO SCH (17:42)
--- NOTE | 2018-01-19 21:15 | XCELERA REPORT ---
[address] [address] Transthoracic Echocardiogram Report Name: REUBEN LÓPEZ Age: 72 yrs Gender: Male : 1945 Patient Status: Inpatient Patient Location: [address] [place] [address] Study Date: 01/19/2018 03:16 PM Height: 63 in Weight: 161 lb BSA: 1.8 m2 Procedure: A complete two-dimensional transthoracic echocardiogram was performed (2D, M-mode, spectral and color flow Doppler). The study was technically difficult with many images being suboptimal in quality. Reason For Study: eval for pericarditis Ordering Physician: VIRAL SORIA Performed By: Ernie Garrett Interpretation Summary The study was technically difficult with many images being suboptimal in quality. Left ventricular systolic function is mild to moderately reduced. The Ejection Fraction estimate is 35-40% There is mild concentric left ventricular hypertrophy. The left ventricle is grossly normal size. Doppler measurements suggest pseudonormalized left ventricular relaxation, which is associated with grade II/IV or mild to moderate diastolic dysfunction Regional wall motion abnormalities cannot be excluded due to limited visualization. The right ventricular systolic function is normal. The right atrium is normal in size The left atrial size is normal. There is a trace amount of mitral regurgitation There is no mitral valve stenosis. No aortic regurgitation is present. There is no aortic valve stenosis There is a trace or physiologic amount of tricuspid regurgitation Tricuspid regurgitation jet envelope not well defined to measure RV systolic pressure accurately. The aortic root is not well visualized but is probably normal size. The inferior vena cava was not well visualized Minimal pericardial effusion. MMode/2D Measurements & Calculations RVDd: 2.7 cm LVIDd: 4.8 cm FS: 24.3 % Ao root diam: 2.8 cm IVSd: 0.90 cm LVIDs: 3.6 cm EDV(Teich): 105.1 ml LVPWd: 0.76 cm ESV(Teich): 54.3 ml Ao root area: 6.3 cm2 EF(Teich): 48.3 % LA dimension: 3.2 cm Doppler Measurements & Calculations MV E max babita: MV P1/2t max babita: Ao V2 max: LV V1 max P.5 cm/sec 54.8 cm/sec 101.8 cm/sec 2.7 mmHg MV A max babita: MV P1/2t: 57.4 msec Ao max PG: LV V1 max: 66.2 cm/sec 4.1 mmHg 82.3 cm/sec MV E/A: 0.82 MVA(P1/2t): 3.8 cm2 MV dec slope: 279.7 cm/sec2 PA V2 max: 64.1 cm/sec PA max P.6 mmHg Left Ventricle The left ventricle is grossly normal size. There is mild concentric left ventricular hypertrophy. Left ventricular systolic function is mild to moderately reduced. The Ejection Fraction estimate is 35-40%. Doppler measurements suggest pseudonormalized left ventricular relaxation, which is associated with grade II/IV or mild to moderate diastolic dysfunction. Regional wall motion abnormalities cannot be excluded due to limited visualization. Right Ventricle The right ventricle is grossly normal size. There is normal right ventricular wall thickness. The right ventricular systolic function is normal. Atria The right atrium is normal in size. The left atrial size is normal. Interarterial septum not well visualized and not well dopplered. Cannot comment on ASD/PFO presence. Mitral Valve The mitral valve is grossly normal. There is no mitral valve stenosis. There is a trace amount of mitral regurgitation. Aortic Valve The aortic valve is not well visualized secondary to technical limitations. There is no aortic valve stenosis. No aortic regurgitation is present. Tricuspid Valve The tricuspid valve is not well visualized, but is grossly normal. There is no tricuspid stenosis. There is a trace or physiologic amount of tricuspid regurgitation. Tricuspid regurgitation jet envelope not well defined to measure RV systolic pressure accurately. Pulmonic Valve The pulmonic valve is not well visualized. Great Vessels The aortic root is not well visualized but is probably normal size. The inferior vena cava was not well visualized. Effusions Minimal pericardial effusion. : VIRAL SORIA > Modesta Healy
[2018-01-19] MEDS: AMITRIPTYLINE HCL 10 MG TABLET PO SCH (21:17)
[2018-01-19] MEDS: ATORVASTATIN CALCIUM 10 MG TABLET PO SCH (21:18)
[2018-01-19] MEDS: OXYCODONE-ACETAMINOPHEN 5-325 MG TABLET PO PRN (21:21)
[2018-01-19] MEDS ORDERED: FUROSEMIDE INJ/PF 20 MG/2 ML SDV IV SCH (22:00)
[2018-01-20] MEDS ORDERED: FUROSEMIDE INJ/PF 20 MG/2 ML SDV IV SCH (06:00)
[2018-01-20 07:19] LABS: ABSOLUTE MONOCYTES (AUTO) 1.3 10^3/uL (0.1-1.4); ABSOLUTE NEUT (AUTO) 11.5 10^3/uL (1.7-8.2); BASOPHILS % (AUTO) 0.3 % (0-2); EOSINOPHILS % (AUTO) 0.1 % (0-6); HEMATOCRIT 34.7 % (37.9-51.0); HEMOGLOBIN 11.9 g/dL (13.5-17.0); LYMPHOCYTES % (AUTO) 7.1 % (13-45); MEAN CORPUSCULAR HEMOGLOBIN 32.2 pg (27.0-33.4); MEAN CORPUSCULAR HGB CONC 34.3 g/dL (32.0-36.0); MEAN CORPUSCULAR VOLUME 94 fl (80-97); MONOCYTES % (AUTO) 9.2 % (3-13); PLATELET COUNT 323 10^3/uL (150-450); RED BLOOD COUNT 3.69 10^6/uL (4.35-5.55); RED CELL DISTRIBUTION WIDTH 13.3 % (11.5-14.0); SEGMENTED NEUTROPHILS % (AUTO) 83.3 % (42-78); TOTAL CELLS COUNTED % (AUTO) 100 %; WHITE BLOOD COUNT 13.8 10^3/uL (4.0-10.5)
[2018-01-20 07:46] LABS: ALANINE AMINOTRANSFERASE 53 U/L (21-72); ALBUMIN 3.8 g/dL (3.5-5.0); ALKALINE PHOSPHATASE 79 U/L (38-126); ANION GAP 14 (5-19); ASPARTATE AMINO TRANSFERASE 23 U/L (17-59); BILIRUBIN,DIRECT 0.3 mg/dL (0.0-0.4); BILIRUBIN,TOTAL 1.1 mg/dL (0.2-1.3); BLOOD UREA NITROGEN 28 mg/dL (7-20); CALCIUM 9.8 mg/dL (8.4-10.2); CARBON DIOXIDE 25 mmol/L (22-30); CHLORIDE 99 mmol/L (98-107); GLUCOSE 238 mg/dL (75-110); POTASSIUM 4.6 mmol/L (3.6-5.0); SODIUM 137.5 mmol/L (137-145); TOTAL PROTEIN 6.7 g/dL (6.3-8.2)
[2018-01-20 08:10] LABS: ERYTHROCYTE SEDIMENTATION RATE 20 mm/hr (0-20)
[2018-01-20] MEDS: POLYETHYLENE GLYCOL 3350 POWDER 17 GM/1 PACKET PO SCH ×2 (09:02→17:24)
[2018-01-20] MEDS: COLCHICINE 0.6 MG TABLET PO SCH (09:08)
[2018-01-20] MEDS: FAMOTIDINE 20 MG TABLET PO SCH ×2 (09:08→21:45)
[2018-01-20] MEDS: LUBIPROSTONE 24 MCG CAPSULE PO SCH ×2 (09:08→17:24)
[2018-01-20] MEDS: ESCITALOPRAM OXALATE 10 MG TABLET PO SCH (09:08)
[2018-01-20] MEDS: GUAIFENESIN 600 MG TABLET.SA PO SCH ×2 (09:08→21:45)
[2018-01-20] MEDS: SACUBITRIL/VALSARTAN 24 MG/26 MG TABLET PO SCH ×2 (09:13→21:52)
[2018-01-20] MEDS: CARVEDILOL 3.125 MG TABLET PO SCH ×2 (09:13→21:52)
[2018-01-20] MEDS: LACTULOSE SYRUP 20 GM/30 ML UDCUP PO SCH ×2 (09:13→17:24)
[2018-01-20] MEDS: ASPIRIN 81 MG TABLET, ENT COATED PO SCH (09:13)
[2018-01-20] MEDS: OXYCODONE HCL IR 5 MG TABLET PO PRN (09:24)
[2018-01-20] MEDS: INSULIN LISPRO 100 UNIT/ML 3 ML VIAL SUBCUT PRN ×2 (13:10→17:25)
[2018-01-20] MEDS: MIDODRINE HCL 5 MG TABLET PO SCH ×2 (13:10→17:24)
[2018-01-20] MEDS ORDERED: LIDOCAINE 1% INJ-PF (10 MG/ML) 30 ML SDV ONE (13:42)
--- NOTE | 2018-01-20 14:51 | RADIOLOGY REPORT (SQ) ---
EXAM DESCRIPTION: U/S CHEST COMPLETED DATE/TIME: 01/20/2018 2:16 pm REASON FOR STUDY: right sided pleural effuison COMPARISON: CT CHEST 01/18/2018 TECHNIQUE: Ultrasound of the right posterior chest was performed to assess the right pleural effusio n seen on 01/18/2018. Static and cine loop images saved to pac's. LIMITATIONS: None. FINDINGS: Very small right pleural effusion in the right posterior costophrenic sulcus. Insufficien t for thoracentesis. No procedure performed today. IMPRESSION: Very small right pleural effusion, less prominent than on 01/18/2018 CT chest TECHNICAL DOCUMENTATION: JOB ID: [id number] [employer]- All Rights Reserved Reading location - IP/workstation name: [email or web address]
--- NOTE | 2018-01-20 16:56 | PDOC PROGRESS REPORT ---
Subjective Progress Note for:: 01/20/18 Subjective:: Patient refers that Feels better. Patient went to the radiology suite for thoracentesis but when checking via ultrasound there has been marked improvement in the reduction of pleural fluid in the right side therefore was counseled Review of system All organ systems evaluated and negative except as in subjective All laboratories and significant diagnostics have been reviewed Reason For Visit: SEPSIS, HYPOTENSION Physical Exam Vital Signs: Temp Pulse Resp BP Pulse Ox 97.8 F 76 16 107/53 L 94 01/20/18 15:17 01/20/18 15:17 01/20/18 15:17 01/20/18 15:17 01/20/18 15:17 Intake & Output 01/19/18 01/20/18 01/21/18 06:59 06:59 06:59 Intake Total 1887 1191 318 Output Total 1625 650 Balance 262 541 318 Weight 73.3 kg 72.8 kg General appearance: PRESENT: no acute distress, cooperative, obese Head exam: PRESENT: atraumatic, normocephalic Eye exam: PRESENT: conjunctiva pink, EOMI, PERRLA Ear exam: PRESENT: normal external ear exam Neck exam: PRESENT: full ROM. ABSENT: JVD, lymphadenopathy, tenderness Respiratory exam: PRESENT: crackles - Soft basilar crackles with adequate movement of air Cardiovascular exam: PRESENT: RRR. ABSENT: diastolic murmur, systolic murmur Vascular exam: PRESENT: normal capillary refill GI/Abdominal exam: PRESENT: normal bowel sounds, soft. ABSENT: tenderness Extremities exam: PRESENT: full ROM. ABSENT: joint swelling, pedal edema Musculoskeletal exam: PRESENT: ambulatory, full ROM Neurological exam: PRESENT: alert, awake, oriented to person, oriented to place , oriented to time, CN II-XII grossly intact Psychiatric exam: PRESENT: appropriate affect, normal mood Skin exam: PRESENT: intact, normal color Results Laboratory Results: 01/20/18 06:37 01/20/18 06:37 01/20/18 01/20/18 06:37 06:37 WBC 13.8 H RBC 3.69 L Hgb 11.9 L Hct 34.7 L MCV 94 MCH 32.2 MCHC 34.3 RDW 13.3 Plt Count 323 Seg Neutrophils % 83.3 H Lymphocytes % 7.1 L Monocytes % 9.2 Eosinophils % 0.1 Basophils % 0.3 Absolute Neutrophils 11.5 H Absolute Lymphocytes 1.0 Absolute Monocytes 1.3 Absolute Eosinophils 0.0 Absolute Basophils 0.0 Sodium 137.5 Potassium 4.6 Chloride 99 Carbon Dioxide 25 Anion Gap 14 BUN 28 H Creatinine 1.26 H Est GFR ( Amer) > 60 Est GFR (Non-Af Amer) 56 L Glucose 238 H Calcium 9.8 Magnesium 1.7 Total Bilirubin 1.1 AST 23 ALT 53 Alkaline Phosphatase 79 Total Protein 6.7 Albumin 3.8 01/16/18 18:50 Clean Catch Midstream Legionella Urinary Antigen - Final 01/15/18 01/16/18 19:47 04:56 Troponin I 0.099 0.046 NT-Pro-B Natriuret Pep 321 Impressions: Chest X-Ray 01/15/18 13:41 IMPRESSION: NO ACUTE RADIOGRAPHIC FINDING IN THE CHEST. Chest CT 01/18/18 00:00 IMPRESSION: 1. Moderate right pleural effusion and smaller left pleural effusion. 2. There appears to be pericardial thickening. Is there any history of or evidence of pericarditis? 3. No pulmonary infiltrate is appreciated. Chest Ultrasound 01/20/18 11:17 IMPRESSION: Very small right pleural effusion, less prominent than on 01/18/2018 CT chest Assessment & Plan - Diagnosis (1) Pneumonia Qualifiers: Pneumonia type: due to unspecified organism Lung location: unspecified part of lung Is this a current diagnosis for this admission?: Yes Plan: There is some persistance of leukocytosis. Will discontinue Levaquin and will try Augmentin to see if there is some improvement (2) Sepsis Qualifiers: Sepsis type: sepsis due to unspecified organism Qualified Code(s): A41.9 - Sepsis, unspecified organism Is this a current diagnosis for this admission?: Yes Plan: Resolved (3) CAD (coronary artery disease) Qualifiers: [place] vs. transplanted heart: unspecified whether [place] or transplanted heart Associated angina: without angina Is this a current diagnosis for this admission?: Yes Plan: Stable (4) Hypotensive episode Is this a current diagnosis for this admission?: Yes Plan: According to the record appears that patient was dehydrated upon presentation however there was some concern about sepsis (5) Status post placement of cardiac pacemaker Is this a current diagnosis for this admission?: Yes Plan: Stable (6) Constipation Qualifiers: Constipation type: unspecified constipation type Qualified Code(s): K59.00 - Constipation, unspecified Is this a current diagnosis for this admission?: Yes Plan: Continue bowel regimen (7) Pericarditis Qualifiers: Infectious pericarditis etiology: unspecified Chronic pericarditis complication: unspecified complication status Is this a current diagnosis for this admission?: Yes Plan: Ruled out by echocardiogram and please continue colchicine (8) Pleural effusion Is this a current diagnosis for this admission?: Yes Plan: Improved after placing patient on Lasix IV. Will discontinue Lasix IV due to above and renal function. - Time Time Spent with patient: 15-24 minutes Medications reviewed and adjusted accordingly: Yes Anticipated discharge: Home with Homehealth Within: within 48 hours - Inpatient Certification Based on my medical assessment, after consideration of the patient's comorbidities, presenting symptoms, or acuity I expect that the services needed warrant INPATIENT care.: Yes I certify that my determination is in accordance with my understanding of Medicare's requirements for reasonable and necessary INPATIENT services [42 CFR 412.3e].: Yes Medical Necessity: Need Close Monitoring Due to Risk of Patient Decompensation, Need For Continuous Telemetry Monitoring
[2018-01-20] MEDS: AMOXICILLIN TR/POT CLAVULANATE 500-125 MG TAB PO SCH (21:45)
[2018-01-20] MEDS: ATORVASTATIN CALCIUM 10 MG TABLET PO SCH (21:46)
[2018-01-21 05:41] LABS: ABSOLUTE BASOPHILS # (AUTO) 0.1 10^3/uL (0.0-0.2); ABSOLUTE EOSINOPHILS # (AUTO) 0.1 10^3/uL (0.0-0.6); ABSOLUTE LYMPHOCYTES (AUTO) 1.9 10^3/uL (0.5-4.7); ABSOLUTE MONOCYTES (AUTO) 1.7 10^3/uL (0.1-1.4); ABSOLUTE NEUT (AUTO) 6.3 10^3/uL (1.7-8.2); BASOPHILS % (AUTO) 0.8 % (0-2); EOSINOPHILS % (AUTO) 1.1 % (0-6); HEMATOCRIT 29.9 % (37.9-51.0); HEMOGLOBIN 10.4 g/dL (13.5-17.0); LYMPHOCYTES % (AUTO) 18.5 % (13-45); MEAN CORPUSCULAR HEMOGLOBIN 32.7 pg (27.0-33.4); MEAN CORPUSCULAR HGB CONC 34.7 g/dL (32.0-36.0); MEAN CORPUSCULAR VOLUME 94 fl (80-97); MONOCYTES % (AUTO) 17.1 % (3-13); PLATELET COUNT 247 10^3/uL (150-450); RED BLOOD COUNT 3.18 10^6/uL (4.35-5.55); RED CELL DISTRIBUTION WIDTH 13.3 % (11.5-14.0); SEGMENTED NEUTROPHILS % (AUTO) 62.5 % (42-78); TOTAL CELLS COUNTED % (AUTO) 100 %; WHITE BLOOD COUNT 10.1 10^3/uL (4.0-10.5)
[2018-01-21 05:59] LABS: ANION GAP 12 (5-19); BLOOD UREA NITROGEN 36 mg/dL (7-20); CALCIUM 9.3 mg/dL (8.4-10.2); CARBON DIOXIDE 28 mmol/L (22-30); CHLORIDE 97 mmol/L (98-107); GLUCOSE 164 mg/dL (75-110); POTASSIUM 4.5 mmol/L (3.6-5.0); SODIUM 137.1 mmol/L (137-145)
[2018-01-21] MEDS: AMOXICILLIN TR/POT CLAVULANATE 500-125 MG TAB PO SCH ×3 (06:16→22:28)
[2018-01-21] MEDS: INSULIN LISPRO 100 UNIT/ML 3 ML VIAL SUBCUT PRN ×3 (09:09→22:28)
[2018-01-21] MEDS: FAMOTIDINE 20 MG TABLET PO SCH ×2 (09:09→22:28)
[2018-01-21] MEDS: ASPIRIN 81 MG TABLET, ENT COATED PO SCH (09:09)
[2018-01-21] MEDS: COLCHICINE 0.6 MG TABLET PO SCH (09:10)
[2018-01-21] MEDS: MIDODRINE HCL 5 MG TABLET PO SCH ×3 (09:10→17:08)
[2018-01-21] MEDS: GUAIFENESIN 600 MG TABLET.SA PO SCH ×2 (09:13→22:28)
[2018-01-21] MEDS: ESCITALOPRAM OXALATE 10 MG TABLET PO SCH (09:13)
[2018-01-21] MEDS: OXYCODONE HCL IR 5 MG TABLET PO PRN ×2 (09:14→19:26)
[2018-01-21] MEDS: POLYETHYLENE GLYCOL 3350 POWDER 17 GM/1 PACKET PO SCH ×2 (09:15→17:09)
[2018-01-21] MEDS: SACUBITRIL/VALSARTAN 24 MG/26 MG TABLET PO SCH ×2 (09:19→22:17)
[2018-01-21] MEDS: LUBIPROSTONE 24 MCG CAPSULE PO SCH ×2 (09:19→17:08)
[2018-01-21] MEDS: LACTULOSE SYRUP 20 GM/30 ML UDCUP PO SCH ×2 (09:22→17:09)
[2018-01-21] MEDS: CARVEDILOL 3.125 MG TABLET PO SCH ×2 (09:22→22:17)
[2018-01-21] MEDS ORDERED: NORMAL SALINE 500 ML IV PRN (14:27)
--- NOTE | 2018-01-21 14:43 | PDOC PROGRESS REPORT ---
Subjective Progress Note for:: 01/21/18 Subjective:: Patient states that he is doing better when compared to admission. He denies any chest pain, shortness of breath. Nurse is concerned that patient appears depressed and I concur. I did talk with patient about moving to [place] closer to his daughter. When approached he relates that he has friends locally and on other occasions remains quite Review of system All organ systems evaluated and negative except as in subjective All laboratories and significant diagnostics have been reviewed Reason For Visit: SEPSIS, HYPOTENSION Physical Exam Vital Signs: Temp Pulse Resp BP Pulse Ox 99.0 F 76 17 104/50 L 92 01/21/18 07:16 01/21/18 07:16 01/21/18 07:16 01/21/18 07:16 01/21/18 07:16 Intake & Output 01/20/18 01/21/18 01/22/18 06:59 06:59 06:59 Intake Total 1191 990 Output Total 650 325 Balance 541 665 Weight 72.8 kg 72.4 kg General appearance: PRESENT: no acute distress, cooperative, obese Head exam: PRESENT: atraumatic, normocephalic Eye exam: PRESENT: conjunctiva pink, EOMI, PERRLA Ear exam: PRESENT: normal external ear exam Mouth exam: PRESENT: moist Neck exam: PRESENT: full ROM. ABSENT: JVD, lymphadenopathy, tenderness, thyromegaly Respiratory exam: PRESENT: clear to auscultation marcel Cardiovascular exam: PRESENT: RRR. ABSENT: diastolic murmur, systolic murmur Vascular exam: PRESENT: normal capillary refill GI/Abdominal exam: PRESENT: normal bowel sounds, soft. ABSENT: tenderness Extremities exam: PRESENT: full ROM. ABSENT: pedal edema Musculoskeletal exam: PRESENT: ambulatory Neurological exam: PRESENT: alert, awake, oriented to person, oriented to place , oriented to time, oriented to situation, CN II-XII grossly intact Psychiatric exam: PRESENT: depressed Skin exam: PRESENT: normal color Results Laboratory Results: 01/21/18 05:06 01/21/18 05:06 01/21/18 01/21/18 05:06 05:06 WBC 10.1 RBC 3.18 L Hgb 10.4 L Hct 29.9 L MCV 94 MCH 32.7 MCHC 34.7 RDW 13.3 Plt Count 247 Seg Neutrophils % 62.5 Lymphocytes % 18.5 Monocytes % 17.1 H Eosinophils % 1.1 Basophils % 0.8 Absolute Neutrophils 6.3 Absolute Lymphocytes 1.9 Absolute Monocytes 1.7 H Absolute Eosinophils 0.1 Absolute Basophils 0.1 Sodium 137.1 Potassium 4.5 Chloride 97 L Carbon Dioxide 28 Anion Gap 12 BUN 36 H Creatinine 1.31 H Est GFR ( Amer) > 60 Est GFR (Non-Af Amer) 54 L Glucose 164 H Calcium 9.3 01/15/18 19:47 Blood Blood Culture - Final NO GROWTH IN 5 DAYS 01/15/18 01/16/18 19:47 04:56 Troponin I 0.099 0.046 NT-Pro-B Natriuret Pep 321 Impressions: Chest X-Ray 01/15/18 13:41 IMPRESSION: NO ACUTE RADIOGRAPHIC FINDING IN THE CHEST. Chest CT 01/18/18 00:00 IMPRESSION: 1. Moderate right pleural effusion and smaller left pleural effusion. 2. There appears to be pericardial thickening. Is there any history of or evidence of pericarditis? 3. No pulmonary infiltrate is appreciated. Chest Ultrasound 01/20/18 11:17 IMPRESSION: Very small right pleural effusion, less prominent than on 01/18/2018 CT chest Assessment & Plan - Diagnosis (1) Pneumonia Qualifiers: Pneumonia type: due to unspecified organism Lung location: unspecified part of lung Is this a current diagnosis for this admission?: Yes Plan: Continue Augmentin. Leukocytosis resolved since on Augmentin (2) Sepsis Qualifiers: Sepsis type: sepsis due to unspecified organism Qualified Code(s): A41.9 - Sepsis, unspecified organism Is this a current diagnosis for this admission?: Yes Plan: Resolved (3) CAD (coronary artery disease) Qualifiers: [place] vs. transplanted heart: unspecified whether [place] or transplanted heart Associated angina: without angina Is this a current diagnosis for this admission?: Yes Plan: Stable (4) Hypotensive episode Is this a current diagnosis for this admission?: Yes Plan: According to the record appears that patient was dehydrated upon presentation however there was some concern about sepsis (5) Status post placement of cardiac pacemaker Is this a current diagnosis for this admission?: Yes Plan: Stable (6) Constipation Qualifiers: Constipation type: unspecified constipation type Qualified Code(s): K59.00 - Constipation, unspecified Is this a current diagnosis for this admission?: Yes Plan: Continue bowel regimen (7) Pericarditis Qualifiers: Infectious pericarditis etiology: unspecified Chronic pericarditis complication: unspecified complication status Is this a current diagnosis for this admission?: No Plan: Ruled out by echocardiogram and discontinue colchicine (8) Pleural effusion Is this a current diagnosis for this admission?: Yes Plan: Improved after placing patient on Lasix IV. Chest x-ray since patient approaching discharge (9) ROSALIND (acute kidney injury) Is this a current diagnosis for this admission?: Yes Plan: Due to mild volume contraction in the setting of IV diuresis. Will order a 500 mL bolus. Will repeat BMP in the morning - Time Time Spent with patient: 15-24 minutes Medications reviewed and adjusted accordingly: Yes Anticipated discharge: Home with Homehealth Within: within 24 hours - Inpatient Certification Based on my medical assessment, after consideration of the patient's comorbidities, presenting symptoms, or acuity I expect that the services needed warrant INPATIENT care.: Yes I certify that my determination is in accordance with my understanding of Medicare's requirements for reasonable and necessary INPATIENT services [42 CFR 412.3e].: Yes Medical Necessity: Need Close Monitoring Due to Risk of Patient Decompensation, Need For IV Fluids
--- NOTE | 2018-01-21 15:46 | RADIOLOGY REPORT (SQ) ---
EXAM DESCRIPTION: CHEST 2 VIEWS COMPLETED DATE/TIME: 01/21/2018 3:05 pm REASON FOR STUDY: follow pleural effusions COMPARISON: 2011. 01/15/2018. CT chest 01/18/2018. TECHNIQUE: Frontal and lateral radiographic views of the chest acquired. NUMBER OF VIEWS: Two view. LIMITATIONS: None. FINDINGS: LUNGS AND PLEURA: Low volumes with persistent small bilateral pleural effusions. Mild nicanor tral vascular congestion. No pneumothorax. MEDIASTINUM AND HILAR STRUCTURES: No developing contour abnormality. Stable appearance. HEART AND VASCULAR STRUCTURES: Stable mild cardiomegaly. BONES: No acute findings. HARDWARE: Left pacer, leads grossly intact. OTHER: No other significant finding. IMPRESSION: Fairly stable appearance of the chest. Mild vascular congestion with small persistent b ilateral pleural effusions. TECHNICAL DOCUMENTATION: JOB ID: [id number] [employer]- All Rights Reserved Reading location - IP/workstation name: [email or web address]
[2018-01-21] MEDS: ATORVASTATIN CALCIUM 10 MG TABLET PO SCH (22:28)
[2018-01-22] MEDS: AMOXICILLIN TR/POT CLAVULANATE 500-125 MG TAB PO SCH (05:29)
[2018-01-22 07:12] LABS: ABSOLUTE BASOPHILS # (AUTO) 0.1 10^3/uL (0.0-0.2); ABSOLUTE EOSINOPHILS # (AUTO) 0.1 10^3/uL (0.0-0.6); ABSOLUTE LYMPHOCYTES (AUTO) 1.5 10^3/uL (0.5-4.7); ABSOLUTE MONOCYTES (AUTO) 1.4 10^3/uL (0.1-1.4); ABSOLUTE NEUT (AUTO) 5.1 10^3/uL (1.7-8.2); EOSINOPHILS % (AUTO) 1.5 % (0-6); HEMATOCRIT 29.1 % (37.9-51.0); LYMPHOCYTES % (AUTO) 18.6 % (13-45); MEAN CORPUSCULAR HEMOGLOBIN 32.6 pg (27.0-33.4); MEAN CORPUSCULAR HGB CONC 34.3 g/dL (32.0-36.0); MEAN CORPUSCULAR VOLUME 95 fl (80-97); MONOCYTES % (AUTO) 16.8 % (3-13); PLATELET COUNT 239 10^3/uL (150-450); RED BLOOD COUNT 3.06 10^6/uL (4.35-5.55); RED CELL DISTRIBUTION WIDTH 13.1 % (11.5-14.0); SEGMENTED NEUTROPHILS % (AUTO) 62.1 % (42-78); TOTAL CELLS COUNTED % (AUTO) 100 %; WHITE BLOOD COUNT 8.1 10^3/uL (4.0-10.5)
[2018-01-22 07:30] LABS: ANION GAP 8 (5-19); BLOOD UREA NITROGEN 34 mg/dL (7-20); CALCIUM 8.9 mg/dL (8.4-10.2); CARBON DIOXIDE 29 mmol/L (22-30); CHLORIDE 100 mmol/L (98-107); GLUCOSE 141 mg/dL (75-110); POTASSIUM 4.4 mmol/L (3.6-5.0); SODIUM 136.7 mmol/L (137-145)
[2018-01-22] MEDS: INSULIN LISPRO 100 UNIT/ML 3 ML VIAL SUBCUT PRN (08:50)
[2018-01-22] MEDS: MIDODRINE HCL 5 MG TABLET PO SCH (09:05)
[2018-01-22] MEDS: GUAIFENESIN 600 MG TABLET.SA PO SCH (09:05)
[2018-01-22] MEDS: ASPIRIN 81 MG TABLET, ENT COATED PO SCH (09:05)
[2018-01-22] MEDS: FAMOTIDINE 20 MG TABLET PO SCH (09:05)
[2018-01-22] MEDS: LUBIPROSTONE 24 MCG CAPSULE PO SCH (09:06)
[2018-01-22] MEDS: ESCITALOPRAM OXALATE 10 MG TABLET PO SCH (09:06)
[2018-01-22] MEDS: LACTULOSE SYRUP 20 GM/30 ML UDCUP PO SCH (09:08)
[2018-01-22] MEDS: POLYETHYLENE GLYCOL 3350 POWDER 17 GM/1 PACKET PO SCH (09:08)
[2018-01-22] MEDS: CARVEDILOL 3.125 MG TABLET PO SCH (09:08)
[2018-01-22] MEDS: SACUBITRIL/VALSARTAN 24 MG/26 MG TABLET PO SCH (09:11)
[2018-01-22 12:15] VITALS: BP 103/59
--- NOTE | 2018-01-22 18:22 | PDOC DISCHARGE SUMMARY ---
General - Admit/Disc Date/PCP Admission Date/Primary Care Provider: 01/15/18 19:08 Discharge Date: 01/22/18 - Discharge Diagnosis (1) Sepsis with hypotension Is this a current diagnosis for this admission?: Yes (2) Pneumonia Is this a current diagnosis for this admission?: Yes (3) Acute on chronic systolic CHF (congestive heart failure) Is this a current diagnosis for this admission?: Yes (4) Pleural effusion Is this a current diagnosis for this admission?: Yes (5) CAD (coronary artery disease) Is this a current diagnosis for this admission?: Yes (6) Status post placement of cardiac pacemaker Is this a current diagnosis for this admission?: Yes (7) Constipation Is this a current diagnosis for this admission?: Yes (8) ROSALIND (acute kidney injury) Is this a current diagnosis for this admission?: Yes (9) Diabetes Is this a current diagnosis for this admission?: Yes (10) Hypotension Is this a current diagnosis for this admission?: Yes - Additional Information Resuscitation Status: Full Code Discharge Diet: Cardiac, Diabetic Discharge Activity: Activity As Tolerated Prescriptions: Amox Tr/Potassium Clavulanate [Augmentin "500" Tablet] 1 tab PO Q8 #15 tablet Escitalopram Oxalate [Lexapro 10 mg Tablet] 10 mg PO DAILY #30 tablet Midodrine HCl [Proamatine 5 mg Tablet] 2.5 mg PO TID #30 tablet Home Medications: Aspirin [Lo-Dose Aspirin EC] 81 mg PO DAILY 01/15/18 Atorvastatin Calcium 10 mg PO QHS MDD LAST FILLED 06-09-17 01/15/18 Carvedilol [Coreg 3.125 mg Tablet] 3.125 mg PO Q12 01/15/18 Metformin HCl [Metformin HCl ER] 500 mg PO DAILY 01/15/18 Oxycodone HCl 5 mg PO Q4HP PRN 01/15/18 Sacubitril/Valsartan [Entresto 24 mg-26 mg Tablet] 1 each PO Q12 01/15/18 Amox Tr/Potassium Clavulanate [Augmentin "500" Tablet] 1 tab PO Q8 #15 tablet 01/22/18 Escitalopram Oxalate [Lexapro 10 mg Tablet] 10 mg PO DAILY #30 tablet 01/22/18 Midodrine HCl [Proamatine 5 mg Tablet] 2.5 mg PO TID #30 tablet 01/22/18 History of Present Illness History of Present Illness: REUBEN LÓPEZ is a 72 year old male who presented emergency room with complaints of acute onset of midsternal chest pain especially when taking a deep breath. He also complained of a fever. Patient actually said he was fine until the day pf evaluation. He got up and prepared to shave and took a bath and then the symptoms started. Patient lives alone and he is a recent . EMS apparently found him to be initially bradycardic however this was somewhat questionable as this was not documented anywhere. He did recently have a pacemaker inserted at [place] on January 04. He was found to be hypotensive in the emergency room and although he felt febrile his temperature was within normal. Continued to complain of pleuritic chest pain and he did have a slight cough. His white count was also found to be elevated at 18,000 with a left shift. Hospital Course Hospital Course: Patient was admitted under the hospitalist service. He was treated for pneumonic process causing sepsis with hypotension. Patient persisted with chest pain and a CT scan of the chest was requested. CT scan was relevant because of the presence of bilateral pleural effusions being larger in the right side. There was also a concern about the possibility of pericarditis due to pericardial thickening.Patient was started on IV diuresis due to pre-existing history of systolic congestive heart failure. A thoracentesis was requested however was cancelled since when at the radiology suite there was not enough fluid to aspirate. Echocardiogram was requested and showed an improvement in EF from 25 to 40%. There was minimal pericardial fluid or changes ruling out pericarditis. Patient was transitioned to Augmentin and is being discharged on this medication. Patient is on Entresto and we noticed blood pressures in the 90s. He was started on Midodrine with improvement and is being discharged on this medication as well. Patient is very depressed. He lives locally and his support system is primarily his friends. He has a daughter but she lives in [place]. Is uncertain how close they are since so we suggested for him to move to that area. Patient was placed on Lexapro by previous provider and continued on discharge. Patient improved and he no longer reported chest pain. 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 Patient is being discharged under stable condition to home health care Physical Exam Vital Signs: Temp Pulse Resp BP Pulse Ox 98.7 F 75 20 103/53 L 94 01/22/18 03:09 01/22/18 03:09 01/22/18 03:09 01/22/18 03:09 01/22/18 03:09 Intake & Output 01/21/18 01/22/18 01/23/18 06:59 06:59 06:59 Intake Total 990 1278 Output Total 325 650 Balance 665 628 Weight 72.4 kg 72.5 kg General appearance: PRESENT: no acute distress, cooperative, obese Head exam: PRESENT: atraumatic, normocephalic Eye exam: PRESENT: conjunctiva pink, EOMI, PERRLA Ear exam: PRESENT: normal external ear exam Mouth exam: PRESENT: moist Neck exam: PRESENT: full ROM. ABSENT: JVD, lymphadenopathy, tenderness Respiratory exam: PRESENT: clear to auscultation marcel Cardiovascular exam: PRESENT: RRR. ABSENT: diastolic murmur, systolic murmur Vascular exam: PRESENT: normal capillary refill GI/Abdominal exam: PRESENT: normal bowel sounds, soft. ABSENT: tenderness Extremities exam: PRESENT: full ROM. ABSENT: pedal edema Musculoskeletal exam: PRESENT: ambulatory Neurological exam: PRESENT: alert, awake, oriented to person, oriented to place , oriented to time, oriented to situation, CN II-XII grossly intact Psychiatric exam: PRESENT: depressed Skin exam: PRESENT: intact, normal color Results Laboratory Results: 01/15/18 01/16/18 19:47 04:56 Troponin I 0.099 0.046 NT-Pro-B Natriuret Pep 321 Impressions: Chest CT 01/18/18 00:00 IMPRESSION: 1. Moderate right pleural effusion and smaller left pleural effusion. 2. There appears to be pericardial thickening. Is there any history of or evidence of pericarditis? 3. No pulmonary infiltrate is appreciated. Chest Ultrasound 01/20/18 11:17 IMPRESSION: Very small right pleural effusion, less prominent than on 01/18/2018 CT chest Chest X-Ray 01/21/18 00:00 IMPRESSION: Fairly stable appearance of the chest. Mild vascular congestion with small persistent bilateral pleural effusions. Qualifiers - * PATIENT BEING DISCHARGED WITH ANY OF THE FOLLOWING DIAGNOSIS: No Plan Discharge Plan: Patient was discharged under home health Time Spent: Greater than 30 Minutes
== END 2018-01-22 12:52 | disposition home health service (06) | DRG 871 ==
LOC: ER 13:32 → EH 19:08 → 3S 22:18
PROVIDERS: ADMIT Internal Medicine; ATTEND Internal Medicine
DX: A41.9 Sepsis, unspecified organism (principal); J18.9 Pneumonia, unspecified organism; I50.23 Acute on chronic systolic (congestive) heart failure; I31.9 Disease of pericardium, unspecified; J90 Pleural effusion, not elsewhere classified; N17.9 Acute kidney failure, unspecified; I11.0 Hypertensive heart disease with heart failure; I48.91 Unspecified atrial fibrillation; I25.10 Atherosclerotic heart disease of native coronary artery without angina pectoris; E11.9 Type 2 diabetes mellitus without complications; K59.00 Constipation, unspecified; Z60.2 Problems related to living alone; Z95.0 Presence of cardiac pacemaker; Z95.5 Presence of coronary angioplasty implant and graft; Z79.84 Long term (current) use of oral hypoglycemic drugs; Z79.899 Other long term (current) drug therapy
CPT/HCPCS: 36415; 71045; 71046; 71260; 76604; 80048; 80053; 80202; 81001; 82550; 82553; 82565; 82962; 83615; 83735; 83880; 84155; 84484; 85025; 85610; 85652; 85730; 87040; 87086; 93005; 93010; 93306; 96361; 96365; 99285; G8978-GP; G8979-GP; J0692; J1650; J1815; J1940; J3370; J3490; J7030; J7040; J7060; J7120

== ENCOUNTER → 2018-07-26 | Outpatient (CLI) | payer MEDICARE, OTHER ==
--- NOTE | 2018-07-26 16:53 | RADIOLOGY REPORT (SQ) ---
EXAM DESCRIPTION: SHOULDER LEFT 2 OR MORE VIEWS COMPLETED DATE/TIME: 07/26/2018 4:37 pm REASON FOR STUDY: PAIN IN LEFT SHOULDER M25.512 PAIN IN LEFT SHOULDER COMPARISON: None. NUMBER OF VIEWS: Three view. TECHNIQUE: Internal rotation, external rotation, and Y view images acquired of the left shoulder. LIMITATIONS: None. FINDINGS: MINERALIZATION: Normal. BONES: No acute fracture or dislocation. No worrisome bone lesions. GLENOHUMERAL JOINT: Mild degenerative change. ACROMIOCLAVICULAR JOINT: Moderate degenerative change. SOFT TISSUES: No calcifications. VISUALIZED RIBS, SPINE, AND LUNG: Left transvenous defibrillator. OTHER: No other significant finding. IMPRESSION: AC and glenohumeral joint arthropathy. TECHNICAL DOCUMENTATION: JOB ID: [id number] [employer]- All Rights Reserved Reading location - IP/workstation name: [email or web address]
== END ==
LOC: OD 16:20
PROVIDERS: ATTEND Physician Assistant Medical
DX: M25.512 Pain in left shoulder (principal); M12.812 Other specific arthropathies, not elsewhere classified, left shoulder

== ENCOUNTER 2019-10-12 12:52 | Emergency (ER) | payer MEDICARE, OTHER ==
[2019-10-12] MEDS ORDERED: KETOROLAC TROMETHAMINE INJ/PF 30 MG/1 ML SDV IV ONE (13:19)
[2019-10-12] MEDS ORDERED: ONDANSETRON HCL INJ/PF 4 MG/2 ML SDV IV ONE (13:19)
--- NOTE | 2019-10-12 13:21 | ER Document Report ---
ED Medical Screen (RME) - General Chief Complaint: Abdominal Pain Stated Complaint: LEFT SIDE PAIN Time Seen by Provider: 10/12/19 13:16 Primary Care Provider: TIO PATEL PA-C [Primary Care Provider] - Follow up as needed Mode of Arrival: Ambulatory Information source: Patient Notes: 74-year-old male patient presents emergency department chief complaint of left f lank pain and hematuria. Patient reports symptoms ongoing for the last 3 days. Reports history of kidney stones, states this feels similar. Denies any nausea, vomiting or fever. Exam: Left CVA tenderness, left lower quadrant abdominal tenderness. I have greeted and performed a rapid initial assessment of this patient. A comprehensive ED assessment and evaluation of the patient, analysis of test results and completion of the medical decision making process will be conducted by additional ED providers. I have specifically instructed the patient or family members with the patient to immediately return to any nursing staff should anything change in the patient's condition or with their chief complaint. TRAVEL OUTSIDE OF THE [place] IN LAST 30 DAYS: No - Related Data Allergies/Adverse Reactions: No Known Allergies Allergy (Verified 10/12/19 13:14) Past Medical History - Social History Frequency of alcohol use: None Drug Abuse: None - Past Medical History Cardiac Medical History: Reports: Hx Atrial Fibrillation, Hx Hypertension Pulmonary Medical History: Reports: Hx Asthma Endocrine Medical History: Reports: Hx Diabetes Mellitus Type 2 Renal/ Medical History: Denies: Hx Peritoneal Dialysis Psychiatric Medical History: Reports: Hx Depression Past Surgical History: Reports: Hx Cardiac Catheterization - stents, Hx Pacemaker - 01/04/2018 Physical Exam - Vital signs Vitals: Temp Pulse Resp BP Pulse Ox 98.2 F 67 16 182/63 H 96 10/12/19 12:59 10/12/19 12:59 10/12/19 12:59 10/12/19 12:59 10/12/19 12:59 Course - Vital Signs Vital signs: Temp Pulse Resp BP Pulse Ox 98.2 F 67 16 182/63 H 96 10/12/19 12:59 10/12/19 12:59 10/12/19 12:59 10/12/19 12:59 10/12/19 12:59 Doctor's Discharge - Discharge Referrals: TIO PATEL PA-C [Primary Care Provider] - Follow up as needed
[2019-10-12 13:48] LABS: ABSOLUTE MONOCYTES (AUTO) 1.5 10^3/uL (0.1-1.4); BASOPHILS % (AUTO) 0.4 % (0-2); EOSINOPHILS % (AUTO) 0.3 % (0-6); HEMATOCRIT 44.6 % (37.9-51.0); HEMOGLOBIN 15.1 g/dL (13.5-17.0); LYMPHOCYTES % (AUTO) 7.6 % (13-45); MEAN CORPUSCULAR HEMOGLOBIN 32.2 pg (27.0-33.4); MEAN CORPUSCULAR HGB CONC 33.7 g/dL (32.0-36.0); MEAN CORPUSCULAR VOLUME 95 fl (80-97); MONOCYTES % (AUTO) 10.9 % (3-13); PLATELET COUNT 255 10^3/uL (150-450); RED BLOOD COUNT 4.68 10^6/uL (4.35-5.55); RED CELL DISTRIBUTION WIDTH 14.1 % (11.5-14.0); SEGMENTED NEUTROPHILS % (AUTO) 80.8 % (42-78); TOTAL CELLS COUNTED % (AUTO) 100 %; WHITE BLOOD COUNT 13.6 10^3/uL (4.0-10.5)
[2019-10-12 14:07] LABS: ALBUMIN 4.6 g/dL (3.5-5.0); ALKALINE PHOSPHATASE 88 U/L (38-126); ANION GAP 14 (5-19); ASPARTATE AMINO TRANSFERASE 31 U/L (17-59); BILIRUBIN,DIRECT 0.3 mg/dL (0.0-0.4); BLOOD UREA NITROGEN 18 mg/dL (7-20); CALCIUM 10.3 mg/dL (8.4-10.2); CARBON DIOXIDE 28 mmol/L (22-30); CHLORIDE 96 mmol/L (98-107); GLUCOSE 261 mg/dL (75-110); POTASSIUM 4.3 mmol/L (3.6-5.0)
[2019-10-12 14:46] LABS: APPEARANCE,URINE CLEAR; BILIRUBIN,URINE NEGATIVE (NEGATIVE); COLOR,URINE YELLOW; GLUCOSE, URINE >=500 mg/dL (NEGATIVE); KETONES,URINE 20 mg/dL (NEGATIVE); LEUKOCYTE ESTERASE,URINE NEGATIVE (NEGATIVE); NITRITE,URINE NEGATIVE (NEGATIVE); PROTEIN,URINE 30 mg/dL (NEGATIVE); URINE SPECIFIC GRAVITY 1.021; UROBILINOGEN,URINE NEGATIVE mg/dL (<2.0)
--- NOTE | 2019-10-12 16:52 | ER Document Report ---
ED General - General Chief Complaint: Abdominal Pain Stated Complaint: LEFT SIDE PAIN Time Seen by Provider: 10/12/19 13:16 Primary Care Provider: TIO PATEL PA-C [NO LOCAL MD] - Follow up as needed Mode of Arrival: Ambulatory Information source: Patient Notes: 74-year-old [place]ag[place] male with chief complaint of left flank pain for 3 days with on and off bloody urine; patient denies any trauma denies any diarrhea or constipation and denies any CVA pain. He has poor appetite for the last 24 hours TRAVEL OUTSIDE OF THE [place] IN LAST 30 DAYS: No - HPI Onset: Other - 3 days; Onset/Duration: Sudden Quality of pain: Achy Severity: Mild Pain Level: 2 Associated symptoms: Other - bloody urine on/off today and poor appetite; patient speaks [place] and Citizen [place] quite easily and understands what I am saying to him. He is watching the [employer] channel on television. Exacerbated by: Movement Similar symptoms previously: Yes Recently seen / treated by doctor: No - Related Data Allergies/Adverse Reactions: No Known Allergies Allergy (Verified 10/12/19 13:14) Past Medical History - General Information source: Patient - Social History Smoking Status: Never Smoker Cigarette use (# per day): No Chew tobacco use (# tins/day): No Smoking Education Provided: No Frequency of alcohol use: None Drug Abuse: None Family History: None, Reviewed & Not Pertinent Patient has suicidal ideation: No Patient has homicidal ideation: No - Past Medical History Cardiac Medical History: Reports: Hx Atrial Fibrillation, Hx Hypertension Pulmonary Medical History: Reports: Hx Asthma Endocrine Medical History: Reports: Hx Diabetes Mellitus Type 2 - diet controlled Renal/ Medical History: Denies: Hx Peritoneal Dialysis Psychiatric Medical History: Reports: Hx Depression Past Surgical History: Reports: Hx Cardiac Catheterization - stents, Hx Cardiac Surgery - pacemaker, defib, Hx Pacemaker - 01/04/2018 Review of Systems - Review of Systems Constitutional: Malaise EENT: No symptoms reported Cardiovascular: No symptoms reported Respiratory: No symptoms reported Gastrointestinal: Abdominal pain, Poor appetite, Poor fluid intake. denies: Abdomen distended, Nausea, Vomiting, Blood in vomit, Black stools, Rectal bleeding Genitourinary: Hematuria. 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 In distress: Mild - Respiratory Respiratory status: No respiratory distress Chest status: Nontender Breath sounds: Normal Chest palpation: Normal - Cardiovascular Rhythm: Regular Murmur: No Friction rub: No Rashid's crunch: No - Abdominal Inspection: Normal Distension: No distension Bowel sounds: Normal Tenderness: Nontender - Back Back: Normal - Extremities General upper extremity: Normal inspection General lower extremity: Normal strength Shoulder: Normal Arm: Normal Elbow: Normal Forearm: Normal Wrist: Normal Hand: Normal - Neurological Neuro grossly intact: Yes Cognition: Normal Orientation: AAOx4 Yonatan Coma Scale Eye Opening: Spontaneous Chavies Coma Scale Verbal: Oriented Chavies Coma Scale Motor: Obeys Commands Yonatan Coma Scale Total: 15 Speech: Normal Cranial nerves: Normal Cerebellar coordination: Normal - Psychological Associated symptoms: Normal affect - Skin Skin Temperature: Warm Skin Moisture: Dry Course - Vital Signs Vital signs: Temp Pulse Resp BP Pulse Ox 99.1 F 79 20 141/66 H 93 10/12/19 15:22 10/12/19 15:22 10/12/19 15:22 10/12/19 15:22 10/12/19 15:22 - Laboratory Result Diagrams: 10/12/19 13:30 10/12/19 13:30 Laboratory results interpreted by me: 10/12/19 10/12/19 10/12/19 13:30 13:30 13:30 WBC 13.6 H RDW 14.1 H Lymph % (Auto) 7.6 L Absolute Neuts (auto) 11.0 H Absolute Monos (auto) 1.5 H Seg Neutrophils % 80.8 H Chloride 96 L Creatinine 1.73 H Est GFR ( Amer) 47 L Est GFR (MDRD) Non-Af 39 L Glucose 261 H Calcium 10.3 H Total Bilirubin 2.0 H Urine Protein 30 H Urine Glucose (UA) >=500 H Urine Ketones 20 H Urine Blood LARGE H - Diagnostic Test Radiology reviewed: Reports reviewed - 4 mm kidney stone per CT Critical Care Note - Critical Care Note Total time excluding time spent on procedures (mins): 60 Comments: I advised patient of the CT findings and lab findings and advised him of his kidney stone causing his left flank pain. Discharge - Discharge Clinical Impression: Hematuria, Kidney stone on left side Abdominal pain Qualifiers: Abdominal location: unspecified location Qualified Code(s): R10.9 - Unspecified abdominal pain Condition: Good Disposition: HOME, SELF-CARE Additional Instructions: take your medications as directed; encourage fluids; follow-up with your doctor and urologist about your kidney stone Prescriptions: Ciprofloxacin HCl [Cipro 500 mg Tablet] 500 mg PO BID #6 tablet Etodolac [Lodine] 400 mg PO BID PRN #10 tablet PRN Reason: Referrals: TIO PATEL PA-C [NO LOCAL MD] - Follow up as needed
--- NOTE | 2019-10-12 17:37 | RADIOLOGY REPORT (SQ) ---
EXAM DESCRIPTION: CT ABD/PELVIS NO ORAL OR IV COMPLETED DATE/TIME: 10/12/2019 4:10 pm REASON FOR STUDY: pain. Left flank pain. COMPARISON: None. TECHNIQUE: CT scan of the abdomen and pelvis performed without intravenous or oral contrast. Images reviewed with lung, soft tissue, and bone windows. Reconstructed coronal and sagittal MPR images revi ewed. All images stored on PACS. All CT scanners at this facility use dose modulation, iterative reconstruction, and/or weight based d osing when appropriate to reduce radiation dose to as low as reasonably achievable (ALARA). [facility]: Dose Right [facility]: CareDose [facility]: Dose Right [facility]: Teradose 4D [facility]: Smart FindTheBest RADIATION DOSE: CT Rad equipment meets quality standard of care and radiation dose reduction techniq ues were employed. CTDIvol: 6.0 mGy. DLP: 328 mGy-cm.mGy. LIMITATIONS: None. FINDINGS: LOWER CHEST: Minimal atelectasis at the right lung base. Partial visualization of a cardi ac pacemaker. Trace pericardial effusion/ pericardial thickening. Calcified granuloma left lung bas e. NON-CONTRASTED LIVER, SPLEEN, ADRENALS: Evaluation limited by lack of IV contrast. No identified sign ificant masses. PANCREAS: No masses. No peripancreatic inflammatory changes. GALLBLADDER: No identified stones by CT criteria. No inflammatory changes to suggest cholecystitis. RIGHT KIDNEY AND URETER: No suspicious masses. Assessment limited by lack of IV contrast. There are multiple nonobstructing right renal calculi. No obstructing renal or ureteral calculus. No hydron ephrosis or hydroureter. LEFT KIDNEY AND URETER: There is a 4 mm calculus at the distal left ureteral vesicle junction or just inside the urinary bladder with mild left hydronephrosis and hydroureter. Additional 3 mm nonobstru cting left superior pole renal calculus. Exophytic left renal cortical cyst at the inferior pole. AORTA AND RETROPERITONEUM: No aneurysm. No retroperitoneal masses or adenopathy. BOWEL AND PERITONEAL CAVITY: No obvious masses or inflammatory changes. No free fluid. APPENDIX: Normal. PELVIS, BLADDER, AND ABDOMINAL WALL:No abnormal masses. No free fluid. Bladder normal. BONES: No significant findings. OTHER: No other significant finding. IMPRESSION: 1. 4 mm calculus at the distal left ureteral vesicle junction or just inside the urinary bladder with mild left hydronephrosis and hydroureter. 2. Bilateral nonobstructing renal calculi. 3. Left renal cortical cyst. COMMENT: Quality ID # [id number]: Final reports with documentation of one or more dose reduction techniques (e.g., Automated exposure control, adjustment of the mA and/or kV according to patient size, use of iterative reconstruction technique) TECHNICAL DOCUMENTATION: JOB ID: [id number] [employer]- All Rights Reserved Reading location - IP/workstation name: [email or web address]
[2019-10-12] MEDS ORDERED: CIPROFLOXACIN HCL 500 MG TABLET PO ONE (18:18)
[2019-10-12 18:34] VITALS: BP 151/60
== END 2019-10-12 18:38 | disposition home or self-care (01) ==
LOC: ER 12:52
DX: N20.0 Calculus of kidney (principal); N13.30 Unspecified hydronephrosis; R31.9 Hematuria, unspecified; R63.0 Anorexia; R53.81 Other malaise; I10 Essential (primary) hypertension; J45.909 Unspecified asthma, uncomplicated; E11.9 Type 2 diabetes mellitus without complications
CPT/HCPCS: 99285; 96374; 96375; 36415; 83690; 85025; 80053; 81001; 74176; A9270; J1885; J2405